=== PATIENT | male | born 1950 | race Caucasian/White ===

== ENCOUNTER 2019-01-28 11:31 | Emergency (ER) | payer MEDICARE, MEDICAID ==
[~2019-01-28] VITALS: Ht 172.7 cm; Wt 73.9 kg
[2019-01-28] MEDS ORDERED: SODIUM CHLORIDE 0.9% 1,000 ML IVB ONE (11:48)
[2019-01-28] MEDS ORDERED: LIDOCAINE 2% JELLY 11ml (GLYDO) UR ONE (12:00)
[2019-01-28 12:07] LABS: Basophils # (auto) 0.1 uL; Eosinophils # (auto) 0.2 uL; Hematocrit 38.5 % (41.0-53.0); Hemoglobin 12.7 g/dL (13.5-17.5); Lymphocytes # (auto) 0.9 uL; Lymphocytes % (auto) 29.9 % (10.0-50.0); Mean Corpuscular Hemoglobin 30.9 pg (28.0-32.0); Mean Corpuscular Hgb Conc. 33.1 g/dL (32.0-36.0); Mean Corpuscular Volume 93.3 fL (80.0-100.0); Monocytes # (auto) 0.2 uL; Monocytes % (auto) 6.9 % (0.0-12.0); Neutrophils # (auto) 1.7 uL; Neutrophils % (auto) 56.2 % (37.0-80.0); Nucleated Red Blood Cells % 0.1 %; Platelet Count (auto) 213 10^3/uL (140-450); Red Blood Cells 4.13 10^6/uL (4.5-5.90); Red Cell Distribution Width 14.8 % (11.8-14.3)
[2019-01-28 12:30] LABS: Albumin 2.5 g/dL (3.4-5.0); Calcium 10.5 mg/dL (8.5-10.1); Magnesium 2.1 mg/dL (1.6-2.6); Potassium 4.4 mmol/L (3.5-5.1)
[2019-01-28 12:31] LABS: Urine Bacteria NONE SEEN /hpf (None Seen); Urine Blood 1+ /uL (Negative); Urine Specific Gravity 1.008 (1.001-1.035); Urine WBC 2 /hpf (0 - 3)
[2019-01-28 12:32] LABS: BUN/Creatinine Ratio 10.2; Bilirubin, Total 0.5 mg/dL (0.2-1.0)
[2019-01-28 12:38] VITALS: BP 91/68
== END 2019-01-28 14:48 | disposition home or self-care (01) ==
LOC: ER 11:31
DX: N13.9 Obstructive and reflux uropathy, unspecified (principal); N21.0 Calculus in bladder; N40.0 Benign prostatic hyperplasia without lower urinary tract symptoms; K80.20 Calculus of gallbladder without cholecystitis without obstruction; Z88.8 Allergy status to other drugs, medicaments and biological substances
CPT/HCPCS: 36415; 51702; 71045; 74176; 80053; 81001; 83735; 85025; 93005; 94761; 99284; J7030

== ENCOUNTER 2019-01-30 22:34 | Emergency (ER) | payer MEDICARE, MEDICAID ==
[~2019-01-30] VITALS: Ht 172.7 cm; Wt 67.1 kg
[2019-01-30 23:53] LABS: Urine Bacteria MOD /hpf (None Seen); Urine Blood 3+ /uL (Negative); Urine Hyaline Cast MANY /lpf (0 - 2); Urine Mucus FEW (None Seen); Urine Specific Gravity 1.032 (1.001-1.035); Urine WBC 73 /hpf (0 - 3)
[2019-01-31 01:00] VITALS: BP 93/59
== END 2019-01-31 02:57 | disposition home or self-care (01) ==
LOC: ER 22:35
DX: N40.1 Benign prostatic hyperplasia with lower urinary tract symptoms (principal); R33.8 Other retention of urine; N39.0 Urinary tract infection, site not specified; E11.9 Type 2 diabetes mellitus without complications; Z88.6 Allergy status to analgesic agent
CPT/HCPCS: 74176; 81001; 94761

== ENCOUNTER 2019-02-02 14:42 | Emergency (ER) | payer MEDICARE, MEDICAID ==
[~2019-02-02] VITALS: Ht 172.7 cm; Wt 61.2 kg
[2019-02-02 16:00] VITALS: BP 95/60
== END 2019-02-02 17:40 | disposition home or self-care (01) ==
LOC: ER 14:45
DX: Z46.89 Encounter for fitting and adjustment of other specified devices (principal); E11.9 Type 2 diabetes mellitus without complications; Z88.8 Allergy status to other drugs, medicaments and biological substances; Z86.73 Personal history of transient ischemic attack (TIA), and cerebral infarction without residual deficits

== ENCOUNTER 2021-01-21 03:38 | Emergency (ER) | payer MEDICARE, MEDICAID ==
[~2021-01-21] VITALS: Ht 172.7 cm; Wt 73.5 kg
[2021-01-21 03:48] VITALS: BP 154/84
== END 2021-01-21 05:22 | disposition left against medical advice (07) ==
LOC: ER 03:38
DX: M54.6 Pain in thoracic spine (principal); Z53.21 Procedure and treatment not carried out due to patient leaving prior to being seen by health care provider

== ENCOUNTER 2021-02-03 21:51 | Emergency (ER) | payer MEDICARE, MEDICAID ==
[~2021-02-03] VITALS: Ht 172.7 cm; Wt 72.6 kg
[2021-02-03 21:57] VITALS: BP 173/91
[2021-02-03 23:23] LABS: Basophils # (auto) 0.1 10 ^3/uL (0-0.2); Basophils % (auto) 0.7 % (0.0-2.0); Eosinophils # (auto) 0.4 10 ^3/uL (0-0.8); Eosinophils % (auto) 6.1 % (0.0-7.0); Hematocrit 47.4 % (41.0-53.0); Hemoglobin 16.1 g/dL (13.5-17.5); Lymphocytes # (auto) 1.1 10 ^3/uL (0.4-5.4); Lymphocytes % (auto) 16.7 % (10.0-50.0); Mean Corpuscular Hemoglobin 31.2 pg (28.0-32.0); Mean Corpuscular Hgb Conc. 33.9 g/dL (32.0-36.0); Monocytes # (auto) 0.4 10 ^3/uL (0-1.3); Monocytes % (auto) 5.6 % (0.0-12.0); Neutrophils # (auto) 4.9 10 ^3/uL (1.6-8.6); Neutrophils % (auto) 70.9 % (37.0-80.0); Red Blood Cells 5.15 10^6/uL (4.5-5.90); Red Cell Distribution Width 13.1 % (11.8-14.3); White Blood Cell 6.9 10^3/uL (4.4-10.8)
[2021-02-03 23:43] LABS: Albumin 3.7 g/dL (3.4-5.0); BUN/Creatinine Ratio 12.6; Calcium 7.9 mg/dL (8.5-10.1); Potassium 3.7 mmol/L (3.5-5.1)
[2021-02-03 23:48] LABS: Bilirubin, Total 0.4 mg/dL (0.2-1.0); Total Protein 8.1 g/dL (6.4-8.2)
[2021-02-04 04:23] LABS: Urine Bacteria NONE SEEN /hpf (None Seen); Urine Blood Negative /uL (Negative); Urine Mucus FEW (None Seen); Urine Specific Gravity 1.022 (1.001-1.035); Urine WBC 1 /hpf (0 - 3)
== END 2021-02-04 01:04 | disposition left against medical advice (07) ==
LOC: ER 21:51
DX: R10.9 Unspecified abdominal pain (principal); R11.2 Nausea with vomiting, unspecified; Z53.21 Procedure and treatment not carried out due to patient leaving prior to being seen by health care provider
CPT/HCPCS: 36415; 80053; 81001; 83880; 84484; 85025; 93005

== ENCOUNTER 2021-11-10 02:25 | Emergency (ER) | payer MEDICARE, MEDICAID ==
[~2021-11-10] VITALS: Ht 172.7 cm; Wt 78.1 kg
[2021-11-10 05:02] LABS: Urine Bacteria FEW /hpf (None Seen); Urine Blood 3+ /uL (Negative); Urine Specific Gravity 1.006 (1.001-1.035); Urine WBC <1 /hpf (0 - 3)
[2021-11-10 08:00] VITALS: BP 110/78
== END 2021-11-10 08:58 | disposition home or self-care (01) ==
LOC: ER 02:25
DX: R33.9 Retention of urine, unspecified (principal); E11.9 Type 2 diabetes mellitus without complications; Z86.73 Personal history of transient ischemic attack (TIA), and cerebral infarction without residual deficits; Z88.8 Allergy status to other drugs, medicaments and biological substances
CPT/HCPCS: 51702; 81001

== ENCOUNTER 2021-11-22 09:42 | Emergency (ER) | payer MEDICARE, MEDICAID ==
[~2021-11-22] VITALS: Ht 172.7 cm; Wt 75.3 kg
[2021-11-22 10:13] VITALS: BP 118/77
== END 2021-11-22 10:30 | disposition home or self-care (01) ==
LOC: ER 09:48
DX: E11.9 Type 2 diabetes mellitus without complications (principal); Z46.6 Encounter for fitting and adjustment of urinary device; Z86.73 Personal history of transient ischemic attack (TIA), and cerebral infarction without residual deficits; Z88.6 Allergy status to analgesic agent

== ENCOUNTER → 2022-01-17 | Outpatient (CLI) | payer MEDICARE, MEDICAID ==
[~2022-01-17] VITALS: Ht 172.7 cm; Wt 69.4 kg
[~2022-01-17] MED LIST: CALC667C5 PO; CHOL20007 OR
[2022-01-17 13:08] LABS: Basophils # (auto) 0 10 ^3/uL (0-0.2); Basophils % (auto) 0.9 % (0.0-2.0); Eosinophils # (auto) 0.4 10 ^3/uL (0-0.8); Eosinophils % (auto) 7.4 % (0.0-7.0); Hematocrit 44.7 % (41.0-53.0); Hemoglobin 14.6 g/dL (13.5-17.5); Lymphocytes % (auto) 18.9 % (10.0-50.0); Mean Corpuscular Hemoglobin 30.3 pg (28.0-32.0); Mean Corpuscular Hgb Conc. 32.6 g/dL (32.0-36.0); Mean Corpuscular Volume 92.8 fL (80.0-100.0); Monocytes # (auto) 0.3 10 ^3/uL (0-1.3); Monocytes % (auto) 6.1 % (0.0-12.0); Neutrophils # (auto) 3.6 10 ^3/uL (1.6-8.6); Neutrophils % (auto) 66.7 % (37.0-80.0); Red Blood Cells 4.82 10^6/uL (4.5-5.90); White Blood Cell 5.3 10^3/uL (4.4-10.8)
[2022-01-17 13:17] LABS: INR 0.92 (0.9-1.15); Partial Thromboplastin Time 26.7 sec (24.6-33.4)
[2022-01-17 13:31] LABS: Urine Bacteria NONE SEEN /hpf (None Seen); Urine Blood Negative /uL (Negative); Urine Specific Gravity 1.023 (1.001-1.035); Urine WBC 613 /hpf (0 - 3)
[2022-01-17 14:01] LABS: Potassium 4.6 mmol/L (3.5-5.1)
[2022-01-17 14:08] LABS: Albumin 3.2 g/dL (3.4-5.0); BUN/Creatinine Ratio 12.1; Bilirubin, Total 1.1 mg/dL (0.2-1.0); Calcium 7.8 mg/dL (8.5-10.1); Total Protein 6.7 g/dL (6.4-8.2)
== END | disposition home or self-care (01) ==
LOC: SUR 12:08 → EDSTATUS 01-18 12:15
PROVIDERS: ATTEND Urology
DX: Z01.812 Encounter for preprocedural laboratory examination (principal); U07.1 COVID-19; M79.89 Other specified soft tissue disorders; N39.0 Urinary tract infection, site not specified; D53.8 Other specified nutritional anemias
CPT/HCPCS: 36415; 80053; 81001; 85025; 85610; 85730; 87086; U0003

== ENCOUNTER 2022-02-12 06:27 | Observation (INO) | payer MEDICARE, MEDICAID ==
[2022-02-08 09:21] LABS: Basophils # (auto) 0 10 ^3/uL (0-0.2); Basophils % (auto) 0.7 % (0.0-2.0); Eosinophils # (auto) 0.5 10 ^3/uL (0-0.8); Eosinophils % (auto) 8.8 % (0.0-7.0); Hematocrit 45.2 % (41.0-53.0); Hemoglobin 15.5 g/dL (13.5-17.5); Lymphocytes # (auto) 1.1 10 ^3/uL (0.4-5.4); Lymphocytes % (auto) 21.7 % (10.0-50.0); Mean Corpuscular Hemoglobin 31.6 pg (28.0-32.0); Mean Corpuscular Hgb Conc. 34.3 g/dL (32.0-36.0); Mean Corpuscular Volume 92.2 fL (80.0-100.0); Monocytes # (auto) 0.4 10 ^3/uL (0-1.3); Neutrophils # (auto) 3.3 10 ^3/uL (1.6-8.6); Neutrophils % (auto) 61.8 % (37.0-80.0); White Blood Cell 5.3 10^3/uL (4.4-10.8)
[2022-02-08 09:29] LABS: INR 0.92 (0.9-1.15); Partial Thromboplastin Time 26.8 sec (24.6-33.4)
[2022-02-08 09:57] LABS: Albumin 3.5 g/dL (3.4-5.0); Calcium 7.9 mg/dL (8.5-10.1); Potassium 4.6 mmol/L (3.5-5.1)
[2022-02-08 10:00] LABS: BUN/Creatinine Ratio 13.2; Bilirubin, Total 0.6 mg/dL (0.2-1.0); Total Protein 6.9 g/dL (6.4-8.2)
[2022-02-08 13:01] LABS: Urine Bacteria NONE SEEN /hpf (None Seen); Urine Mucus FEW (None Seen); Urine WBC 181 /hpf (0 - 3)
[2022-02-08 13:09] LABS: Urine Blood TRACE /uL (Negative)
[~2022-02-12] VITALS: Ht 172.7 cm; Wt 69.4 kg
[2022-02-12] MEDS ORDERED: SUCCINYLCHOLINE CHLORIDE 20 MG/ML 10ML VIAL IV ONE (07:01)
[2022-02-12] MEDS ORDERED: ROCURONIUM 10MG/ML 10ML VIAL IV ONE (07:01)
[2022-02-12] MEDS ORDERED: CIPROFLOXACIN 400MG/200ML 200 ML IV ONE (07:26)
[2022-02-12] MEDS ORDERED: SODIUM CHLORIDE LOCK 10 ML ONE (07:27)
[2022-02-12] MEDS ORDERED: MIDAZOLAM HCL 2MG/2ML 2ml VIAL (1mg/ml) ONE (07:27)
[2022-02-12] MEDS ORDERED: fentaNYL CITRATE 100 MCG/2 ML VL ONE (07:27)
[2022-02-12] MEDS ORDERED: DexAMETHasone SOD PHOS 10MG/1ML VIAL INJ ONE (07:27)
[2022-02-12] MEDS ORDERED: PROPOFOL 10 MG/ML 20 ML IV ONE (07:27)
[2022-02-12] MEDS ORDERED: HYDROmorphone HCL 2 MG/ML VL/or syr IV PRN ×2 (07:30)
[2022-02-12] MEDS ORDERED: METOCLOPRAMIDE HCL 5MG/ml INJ 2ml VIAL IV PRN (07:30)
[2022-02-12] MEDS ORDERED: MORPHINE SULFATE 4 MG/ML SYR/VIAL IV PRN (07:30)
[2022-02-12] MEDS ORDERED: ONDANSETRON HCL 4 MG/2 ML VIAL ONE (11:40)
[2022-02-12] MEDS ORDERED: MORPHINE SULFATE INJ 2 MG/ml SYRG IV PRN (12:30)
[2022-02-12] MEDS ORDERED: NITROGLYCERIN 0.4 MG SL TAB SL PRN (12:30)
[2022-02-12 16:20] VITALS: BP 126/77
[2022-02-12 17:23] VITALS: BP 126/77
[2022-02-12 20:00] VITALS: BP 117/70
[2022-02-12 22:00] VITALS: BP 117/70
[2022-02-13 05:00] VITALS: BP 111/60
[2022-02-13 08:15] VITALS: BP 113/69
[2022-02-13 12:10] VITALS: BP 106/64
[2022-02-13 16:10] VITALS: BP 113/70
[2022-02-13 16:47] VITALS: BP 113/70
== END 2022-02-13 18:33 | disposition home or self-care (01) ==
LOC: SUR 06:27 → OVERFLOW 12:24 → WEST WING 16:56
PROVIDERS: ADMIT Urology; ATTEND Urology
DX: N40.0 Benign prostatic hyperplasia without lower urinary tract symptoms (principal); Z20.822 Contact with and (suspected) exposure to COVID-19; N21.0 Calculus in bladder; N47.1 Phimosis; Z79.899 Other long term (current) drug therapy
CPT/HCPCS: 36415; 51050; 80053; 81001; 85025; 85610; 85730; 87086; 88300; C9740; G0378; J0330; J0744; J1100; J2250; J2405; J2704; J3010; L8699; U0003

== ENCOUNTER 2023-10-01 21:46 | Emergency (ER) | payer MEDICARE, MEDICAID ==
[~2023-10-01] VITALS: Ht 172.7 cm; Wt 69.5 kg
[2023-10-01 22:00] VITALS: BP 115/81; PULSE 78; RESP 18; O2SAT 100
[2023-10-02] MEDS ORDERED: CALA1SUS2 EX (09:23)
[2023-10-02] MEDS ORDERED: CETI5TAB6 PO (09:23)
[2023-10-02] MEDS ORDERED: METH4PAK PO (09:23)
[2023-10-02] MEDS ORDERED: TRIO1TP EX (09:23)
== END 2023-10-01 23:46 | disposition left against medical advice (07) ==
LOC: ER 21:46
DX: R21 Rash and other nonspecific skin eruption (principal); Z53.21 Procedure and treatment not carried out due to patient leaving prior to being seen by health care provider

== ENCOUNTER 2023-10-02 05:25 | Emergency (ER) | payer MEDICARE, MEDICAID ==
[~2023-10-02] VITALS: Ht 172.7 cm; Wt 71.8 kg
[2023-10-02 07:39] VITALS: TEMP 98.8
[2023-10-02] MEDS: FAMOTIDINE (10MG/ML) 2ML VL IV ONE (08:37)
[2023-10-02] MEDS: methylPREDNISolone SOD SUCC 125 MG/2 ML VL IV ONE (08:37)
[2023-10-02] MEDS: diphenhdrAMINE HCL 50 MG/1 ML VL IV ONE (08:37)
[2023-10-02] MEDS ORDERED: METH4PAK PO (09:23)
[2023-10-02] MEDS ORDERED: CETI5TAB6 PO (09:23)
[2023-10-02] MEDS ORDERED: CALA1SUS2 EX (09:23)
[2023-10-02] MEDS ORDERED: TRIO1TP EX (09:23)
[2023-10-02 09:44] VITALS: BP 103/73; PULSE 83; RESP 18; O2SAT 95
== END 2023-10-02 09:50 | disposition home or self-care (01) ==
LOC: ER 05:27
DX: T78.40XA Allergy, unspecified, initial encounter (principal); E11.9 Type 2 diabetes mellitus without complications; Z86.73 Personal history of transient ischemic attack (TIA), and cerebral infarction without residual deficits; Z88.6 Allergy status to analgesic agent; X58.XXXA Exposure to other specified factors, initial encounter
CPT/HCPCS: 96374; 96375; 99284; J1200; J2919; J3490

== ENCOUNTER 2023-10-05 21:53 | Emergency (ER) | payer MEDICARE, MEDICAID ==
[~2023-10-05] VITALS: Ht 172.7 cm; Wt 158.0 kg
[~2023-10-05 21:53] MED LIST changes: +CALA1SUS2 EX; +CETI5TAB6 PO; +METH4PAK PO; +TRIO1TP EX
[2023-10-06 02:14] VITALS: BP 113/54; PULSE 74; RESP 20; TEMP 97.4; O2SAT 96
== END 2023-10-06 05:58 | disposition left against medical advice (07) ==
LOC: ER 21:53
DX: R33.9 Retention of urine, unspecified (principal); Z53.21 Procedure and treatment not carried out due to patient leaving prior to being seen by health care provider
CPT/HCPCS: 74018

== ENCOUNTER 2023-10-06 14:21 | Inpatient (IN) | payer MEDICARE, MEDICAID ==
[~2023-10-06] VITALS: Ht 167.6 cm; Wt 61.5 kg
[2023-10-06 15:15] LABS: Basophils # (auto) 0 10 ^3/uL (0-0.2); Basophils % (auto) 0.3 % (0.0-2.0); Eosinophils # (auto) 0.2 10 ^3/uL (0-0.8); Eosinophils % (auto) 2.3 % (0.0-7.0); Hematocrit 43.9 % (41.0-53.0); Hemoglobin 15.1 g/dL (13.5-17.5); Lymphocytes # (auto) 0.9 10 ^3/uL (0.4-5.4); Lymphocytes % (auto) 11.6 % (10.0-50.0); Mean Corpuscular Hemoglobin 31.2 pg (28.0-32.0); Mean Corpuscular Hgb Conc. 34.3 g/dL (32.0-36.0); Mean Corpuscular Volume 90.9 fL (80.0-100.0); Monocytes # (auto) 0.4 10 ^3/uL (0-1.3); Monocytes % (auto) 5.8 % (0.0-12.0); Neutrophils # (auto) 6.2 10 ^3/uL (1.6-8.6); Red Blood Cells 4.83 10^6/uL (4.5-5.90); Red Cell Distribution Width 12.8 % (11.8-14.3); White Blood Cell 7.7 10^3/uL (4.4-10.8)
[2023-10-06 15:25] LABS: Chloride 110 mmol/L (98-107); Potassium 3.3 mmol/L (3.5-5.1); Sodium 141 mmol/L (136-145)
[2023-10-06 15:26] LABS: Anion Gap 7 (5-15); Calcium 8.6 mg/dL (8.7-10.4); Carbon Dioxide 24 mmol/L (20-30)
[2023-10-06 15:31] LABS: BUN/Creatinine Ratio 11.4 (10.0-20.0); Blood Urea Nitrogen 19 mg/dL (9-23); Glucose 143 mg/dL (74-106)
[2023-10-06] MEDS: POTASSIUM EFFERVESENT TAB 25 MEQ PO ONE (16:39)
[2023-10-07] MEDS ORDERED: IBUPROFEN 600 MG TAB PO PRN (00:30)
[2023-10-07] MEDS ORDERED: ONDANSETRON HCL 4 MG/2 ML VIAL IV PRN (00:30)
[2023-10-07] MEDS ORDERED: DOCUSATE SOD 100 MG CAP PO PRN (00:30)
[2023-10-07] MEDS ORDERED: MORPHINE SULFATE INJ 2 MG/ml SYRG IV PRN ×2 (00:30)
[2023-10-07] MEDS ORDERED: NITROGLYCERIN 0.4 MG SL TAB SL PRN (00:30)
[2023-10-07 05:50] LABS: Basophils # (auto) 0 10 ^3/uL (0-0.2); Basophils % (auto) 0.3 % (0.0-2.0); Eosinophils # (auto) 0.5 10 ^3/uL (0-0.8); Eosinophils % (auto) 6.1 % (0.0-7.0); Hematocrit 44.4 % (41.0-53.0); Hemoglobin 15.2 g/dL (13.5-17.5); Lymphocytes # (auto) 1.4 10 ^3/uL (0.4-5.4); Lymphocytes % (auto) 17.8 % (10.0-50.0); Mean Corpuscular Hemoglobin 31.6 pg (28.0-32.0); Mean Corpuscular Hgb Conc. 34.2 g/dL (32.0-36.0); Mean Corpuscular Volume 92.5 fL (80.0-100.0); Monocytes # (auto) 0.5 10 ^3/uL (0-1.3); Monocytes % (auto) 6.7 % (0.0-12.0); Neutrophils # (auto) 5.3 10 ^3/uL (1.6-8.6); Neutrophils % (auto) 69.1 % (37.0-80.0); Red Cell Distribution Width 12.9 % (11.8-14.3); White Blood Cell 7.7 10^3/uL (4.4-10.8)
[2023-10-07] MEDS: SODIUM CHLOR 0.9% PF (SALINE LOCK) 10ML VIAL/SYR IV SCH (06:00)
[2023-10-07 06:07] LABS: Alanine Aminotransferase 14 U/L (7-40); Albumin 4.2 g/dL (3.2-4.8); Alkaline Phosphatase 101 U/L (46-116); Anion Gap 7 (5-15); BUN/Creatinine Ratio 11.2 (10.0-20.0); Blood Urea Nitrogen 18 mg/dL (9-23); Calcium 8.8 mg/dL (8.5-10.1); Carbon Dioxide 26 mmol/L (20-30); Chloride 107 mmol/L (98-107); Glucose 104 mg/dL (74-106); Potassium 4.1 mmol/L (3.5-5.1); Sodium 140 mmol/L (136-145)
[2023-10-07 06:08] LABS: Aspartate Aminotransferase < 8 U/L (13-40); Bilirubin, Total 0.7 mg/dL (0.2-1.0); Total Protein 6.7 g/dL (5.7-8.2)
[2023-10-07 08:23] VITALS: PULSE 74; RESP 15; O2SAT 96
[2023-10-07 08:23] LABS: Urine Amorphous Crystal FEW /hpf (None Seen); Urine Bacteria FEW /hpf (None Seen); Urine Blood 2+ /uL (Negative); Urine Clarity Clear (Clear); Urine Color Yellow (Yellow); Urine Hyaline Cast FEW /lpf (0 - 2); Urine Mucus FEW (None Seen); Urine Protein, UAD 1+ (Negative); Urine Specific Gravity 1.026 (1.001-1.035); Urine Urobilinogen Normal (Negative); Urine WBC 11 /hpf (0 - 3); Urine pH 5.5 (5.0-9.0)
[2023-10-07 09:53] VITALS: BP 109/71; PULSE 61; TEMP 97.6; O2SAT 98
[2023-10-07 13:00] VITALS: BP 120/71; PULSE 44; RESP 16; TEMP 97.8; O2SAT 100
[2023-10-07 17:00] VITALS: BP 108/68; PULSE 61; RESP 17; TEMP 97.9; O2SAT 97
[2023-10-07 20:00] VITALS: RESP 16; O2SAT 95
[2023-10-07 21:00] VITALS: BP 103/69; PULSE 75; RESP 17; TEMP 98.3; O2SAT 95
[2023-10-07] MEDS: DOCUSATE SOD 100 MG CAP PO SCH (21:38)
[2023-10-08 01:00] VITALS: BP 98/60; PULSE 63; RESP 16; TEMP 98.3; O2SAT 97
[2023-10-08 05:00] VITALS: BP 90/56; PULSE 61; RESP 16; TEMP 98.4; O2SAT 100
[2023-10-08 07:07] LABS: Basophils # (auto) 0 10 ^3/uL (0-0.2); Basophils % (auto) 0.2 % (0.0-2.0); Eosinophils # (auto) 0.4 10 ^3/uL (0-0.8); Eosinophils % (auto) 5.7 % (0.0-7.0); Hematocrit 40.7 % (41.0-53.0); Hemoglobin 13.9 g/dL (13.5-17.5); Mean Corpuscular Hemoglobin 31.3 pg (28.0-32.0); Mean Corpuscular Hgb Conc. 34.3 g/dL (32.0-36.0); Mean Corpuscular Volume 91.2 fL (80.0-100.0); Monocytes # (auto) 0.5 10 ^3/uL (0-1.3); Monocytes % (auto) 6.4 % (0.0-12.0); Neutrophils # (auto) 5.2 10 ^3/uL (1.6-8.6); Neutrophils % (auto) 73.7 % (37.0-80.0); Red Blood Cells 4.46 10^6/uL (4.5-5.90); Red Cell Distribution Width 12.5 % (11.8-14.3)
[2023-10-08 07:35] LABS: Alanine Aminotransferase 12 U/L (7-40); Albumin 3.4 g/dL (3.2-4.8); Alkaline Phosphatase 83 U/L (46-116); Anion Gap 5 (5-15); Aspartate Aminotransferase < 8 U/L (13-40); BUN/Creatinine Ratio 11.6 (10.0-20.0); Bilirubin, Total 0.8 mg/dL (0.2-1.0); Blood Urea Nitrogen 18 mg/dL (9-23); Calcium 8.4 mg/dL (8.5-10.1); Carbon Dioxide 25 mmol/L (20-30); Chloride 110 mmol/L (98-107); Glucose 97 mg/dL (74-106); Potassium 3.8 mmol/L (3.5-5.1); Sodium 140 mmol/L (136-145); Total Protein 5.5 g/dL (5.7-8.2)
[2023-10-08 08:00] VITALS: BP 101/63; PULSE 58; RESP 16; TEMP 98; O2SAT 95; O2SAT 98
[2023-10-08 12:00] VITALS: BP 103/57; PULSE 65; RESP 16; TEMP 98.5; O2SAT 95
[2023-10-08] MEDS ORDERED: CIP500T PO (15:40)
[2023-10-08 16:00] VITALS: BP 96/61; PULSE 66; RESP 16; TEMP 98.5; O2SAT 94
[2023-10-08] MEDS ORDERED: CIPROFLOXACIN HCL 500 MG TAB PO SCH (22:00)
[2023-10-09 08:06] LABS: PSA Free 3.61 ng/mL
== END 2023-10-08 19:40 | disposition home or self-care (01) | DRG 394 ==
LOC: ER 14:21 → OVERFLOW 10-07 00:28 → CENTRAL 10-07 09:00
PROVIDERS: ADMIT Nurse Practitioner Family; ATTEND Nurse Practitioner Acute Care
DX: K64.9 Unspecified hemorrhoids (principal); K62.5 Hemorrhage of anus and rectum; N39.0 Urinary tract infection, site not specified; K59.00 Constipation, unspecified; E87.6 Hypokalemia; N40.1 Benign prostatic hyperplasia with lower urinary tract symptoms; R33.8 Other retention of urine; E11.9 Type 2 diabetes mellitus without complications; Z86.73 Personal history of transient ischemic attack (TIA), and cerebral infarction without residual deficits; Z88.6 Allergy status to analgesic agent; Z79.899 Other long term (current) drug therapy; Z79.4 Long term (current) use of insulin
CPT/HCPCS: 36415; 74018; 80048; 80053; 81001; 83036; 84154; 85025; 87081; G0378

== ENCOUNTER 2023-11-04 11:22 | Emergency (ER) | payer MEDICARE, MEDICAID ==
[~2023-11-04] VITALS: Ht 172.7 cm; Wt 73.7 kg
[~2023-11-04 11:22] MED LIST changes: +CIP500T PO
[2023-11-04 12:26] LABS: Urine Bacteria None Seen /hpf (None Seen)
[2023-11-04 12:55] LABS: Urine Blood Negative /uL (Negative); Urine Clarity Clear (Clear); Urine Color Light-Yellow (Yellow); Urine Protein, UAD Negative (Negative); Urine Specific Gravity 1.012 (1.001-1.035); Urine Urobilinogen Normal (Negative); Urine WBC 1 /hpf (0 - 3)
[2023-11-04 12:59] VITALS: TEMP 97.9
[2023-11-04] MEDS ORDERED: TAMS-35 PO (13:20)
[2023-11-04 13:55] VITALS: PULSE 65; RESP 16; O2SAT 98
[2023-11-04 14:00] VITALS: BP 114/75; PULSE 63; RESP 16; O2SAT 95
== END 2023-11-04 14:19 | disposition home or self-care (01) ==
LOC: ER 11:22
DX: R33.9 Retention of urine, unspecified (principal); E11.9 Type 2 diabetes mellitus without complications; Z86.73 Personal history of transient ischemic attack (TIA), and cerebral infarction without residual deficits; Z46.6 Encounter for fitting and adjustment of urinary device; Z88.6 Allergy status to analgesic agent
CPT/HCPCS: 51702; 81001

== ENCOUNTER 2024-07-31 10:21 | Inpatient (IN) | payer MEDICARE, MEDICAID ==
[~2024-07-31] VITALS: Ht 170.2 cm; Wt 66.9 kg
[~2024-07-31 10:21] MED LIST changes: +TAMS-35 PO
[2024-07-31 12:01] LABS: Basophils # (auto) 0 10 ^3/uL (0-0.2); Basophils % (auto) 0.2 % (0.0-2.0); Eosinophils # (auto) 0.1 10 ^3/uL (0-0.8); Eosinophils % (auto) 0.7 % (0.0-7.0); Hematocrit 38.9 % (41.0-53.0); Hemoglobin 13.1 g/dL (13.5-17.5); Lymphocytes # (auto) 0.4 10 ^3/uL (0.4-5.4); Lymphocytes % (auto) 4.6 % (10.0-50.0); Mean Corpuscular Hgb Conc. 33.6 g/dL (32.0-36.0); Mean Corpuscular Volume 89.3 fL (80.0-100.0); Monocytes # (auto) 0.3 10 ^3/uL (0-1.3); Monocytes % (auto) 3.8 % (0.0-12.0); Neutrophils # (auto) 7.3 10 ^3/uL (1.6-8.6); Neutrophils % (auto) 90.7 % (37.0-80.0); Platelet Count (auto) 197 10^3/uL (140-450); Red Blood Cells 4.36 10^6/uL (4.5-5.90); Red Cell Distribution Width 13.6 % (11.8-14.3); White Blood Cell 8.1 10^3/uL (4.4-10.8)
[2024-07-31 12:16] LABS: Alanine Aminotransferase 13 U/L (7-40); Alkaline Phosphatase 105 U/L (46-116); Anion Gap 10 (5-15); Aspartate Aminotransferase 25 U/L (13-40); BUN/Creatinine Ratio 9.8 (10.0-20.0); Blood Urea Nitrogen 23 mg/dL (9-23); Calcium 8.8 mg/dL (8.7-10.4); Carbon Dioxide 23 mmol/L (20-31); Chloride 110 mmol/L (98-107); Glucose 124 mg/dL (74-106); Potassium 3.8 mmol/L (3.5-5.1); Sodium 143 mmol/L (136-145); Total Protein 6.8 g/dL (5.7-8.2)
[2024-07-31 12:17] LABS: Bilirubin, Total 0.3 mg/dL (0.2-1.0)
--- NOTE | 2024-07-31 13:38 | ED.PDOC ---
General HPI Comments 74 y/o M is BIBA for c/o decrease urine output s/p Otoole catheter placement on 07/27/24, today. Patient is a poor historian and is confused on reason behind ED visit, today, upon time of initial encounter and assessment. Per EMS report, family called, due to patient producing less urine output than usual from his Otoole catheter in addition to the his urine being "cloudy" in appearance. Patient has no reported pain or blood in his urine. En route, patient was given 500ml normal saline bolus. Vitals: temperature of 98.1F, pulse rate of 74, respiratory rate of 14, blood pressure of 115/74, SpO2 of 97%RA. Past medical history: urinary retention, CVA, BPH, UTI, DM Past surgical history: Otoole catheter placement HPI: Poor Historian. Although patient denies any symptoms that does not know why he is in the hospital, palpation of his abdomen reveals a distended lower abdomen and tenderness to palpation in the suprapubic area. I suspect that his bladder is full although he has a Otoole catheter in place with normal color urine. We will irrigate the Otoole catheter. Patient's creatinine is elevated today compared to the past. He is rightly in acute renal insufficiency due to obstruction. Past Medical History: Past Surgical History: REVIEW OF SYSTEMS: CONSTITUTIONAL: Denies acute: fever, diaphoresis, chills, generalized weakness. HEAD: Denies acute: headache, photophobia Eyes: Denies acute: Double vision, vision loss, eye pain, eye discharge. EARS: Denies acute: tinnitus, hearing loss, ear discharge, ear pain, THROAT: Denies acute: sore throat, swelling, difficulty swallowing , pain with swallowing, change in voice. NECK: Denies acute: neck pain, neck swelling, stiff neck. HEART: Denies acute : chest pain, palpitations, LUNGS: Denies acute: SOB, wheezing, cough, hemoptysis ABDOMEN: Denies acute: abdominal pain, Nausea, Vomiting, diarrhea, melena , hematemesis, hematochezia SKIN: Denies acute: rash, redness, lesions, itchiness. EXTREMITIES: Denies acute: calf pain, numbness, tingling, weakness, denies pain in extremity. Denies acute: Low back pain. Neuro: Denies acute: focal neurological deficit, motor or sensory focal neurological deficit, tremors, seizure like activity, confusion, dizziness, change in mental status, loss of bowel or bladder function, cauda equina like symptoms. : Denies acute: dysuria, hematuria, flank pain, increase in urinary frequency. PSYCH: Denies acute: hallucination, suicidal ideation, homicidal ideation. PHYSICAL EXAM: General: ----[id number]----acute distress, awake and alert. Head: normocephalic, atraumatic. Neck: supple, trachea is midline, no swelling. Throat: Normal phonation. Eyes:, no erythema, no purulent discharge, no proptosis, no icterus. Heart: regular rate, regular rhythm, no significant murmur appreciated. Lungs: no apparent respiratory distress, Able to speak in full sentences. No wheezing, no rhonchi, no crackles. No stridors Clear to auscultation bilaterally. Abdomen: Suprapubic tender to palpation, mildly distended, soft, no guarding, no rebound, + bowel sounds. Neuro: Awake, Alert, oriented to name, self, follows commands GCS=15. Speech is normal. Skin: no petechia, no purpura, no cyanosis, non-pale, not jaundice. Lower extremities: --trace bilateral - Pitting edema no deformity, no focal swelling, no calf TTP. Makes eye contact. Face: no apparent facial droop. 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, Medications, Allergies Allergies: Coded Allergies: Acetaminophen (Verified Allergy, Unknown, 01/28/19) Home Meds Active Scripts Tamsulosin Hcl (Flomax) 0.4 Mg Cap, 1 CAP PO DAILY, #30 CAP 11 Refills Prov:LELO GREEN MD 11/04/23 Ciprofloxacin Hydrochloride (Ciprofloxacin HCl) 500 Mg Tab, 500 MG PO BID for 4 Days, #8 TAB Prov:RENE GEORGE NP 10/08/23 Cetirizine Hcl (Cetirizine Hcl) 5 Mg Tab, 10 MG PO DAILY for 14 Days, #28 TAB 0 Refills Prov:STEFANIE ARCEO SUPERVISOR [employer]UTTLE [employer]TING 10/02/23 Calamine-Zinc Oxide (Calamine 8-8 %) 1 Kim Kim, 1 APPLIC EX QID for 7 Days, #1 BOTTLE 0 Refills Prov:STEFANIE ARCEO SUPERVISOR [employer]TING 10/02/23 Triamcinolone Acetonide (Triamcinolone Acetonide) 0.1 % Cre, 0.1 % EX BID for 5 Days, #120 GRAMS 0 Refills Prov:STEFANIE ARCEO SUPERVISOR [employer]TING 10/02/23 Methylprednisolone (Medrol Dosepak) 4 Mg Aelxandro, 4 MG PO UD, #21 TAB 0 Refills UAD Prov:STEFANIE ARCEO SUPERVISOR [employer]UTT[employer]TING 10/02/23 Reported Medications Cholecalciferol (VITAMIN D3) Unknown Strength Tab, OR, TAB 01/17/22 Calcium Acetate (PHOSLO CAPSULE) 667 Mg Cp, 667 MG PO DAILY, CAP 01/17/22 Information Source: Patient, Emergency Med Personnel Mode of Arrival: EMS Past Medical History PAST MEDICAL HISTORY: CVA, DM Family History Family History: Reviewed,noncontributory to illness Social History Smoker: Non-Smoker Alcohol: Denies ETOH Use Drugs: Denies Drug Use Lives In: Home Was a procedure done? Was a procedure done?: No Differential Diagnosis Kidney stone (Female): N/A Urinary Problem (Male): Bladder Outlet, Bladder Obstruction, Epididymitis, Prostatitis, Plelonephritis, Post op Complications, Renal Failure, Urethritis, Urinary Retention, Urolithiasis, UTI X-Ray, Labs, Meds, VS Vital Signs Date Time Temp Pulse Resp B/P (MAP) Pulse Ox O2 Delivery O2 Flow Rate FiO2 07/31/24 14:00 79 18 135/86 (102) 97 07/31/24 10:45 98.1 74 14 115/74 (88) 97 98.1 Lab Test 07/31/24 11:46 Range/Units White Blood Count 8.1 4.4-10.8 10^3/uL Red Blood Count 4.36 L 4.5-5.90 10^6/uL Hemoglobin 13.1 L 13.5-17.5 g/dL Hematocrit 38.9 L 41.0-53.0 % Mean Corpuscular Volume 89.3 80.0-100.0 fL Mean Corpuscular Hemoglobin 30.0 28.0-32.0 pg Mean Corpuscular Hemoglobin Concent 33.6 32.0-36.0 g/dL Red Cell Distribution Width 13.6 11.8-14.3 % Platelet Count 197 140-450 10^3/uL Mean Platelet Volume 7.2 6.9-10.8 fL Neutrophils (%) (Auto) 90.7 H 37.0-80.0 % Lymphocytes (%) (Auto) 4.6 L 10.0-50.0 % Monocytes (%) (Auto) 3.8 0.0-12.0 % Eosinophils (%) (Auto) 0.7 0.0-7.0 % Basophils (%) (Auto) 0.2 0.0-2.0 % Neutrophils # (Auto) 7.3 1.6-8.6 10 ^3/uL Lymphocytes # (Auto) 0.4 0.4-5.4 10 ^3/uL Monocytes # (Auto) 0.3 0-1.3 10 ^3/uL Eosinophils # (Auto) 0.1 0-0.8 10 ^3/uL Basophils # (Auto) 0 0-0.2 10 ^3/uL Nucleated Red Blood Cells 0.0 % Sodium Level 143 136-145 mmol/L Potassium Level 3.8 3.5-5.1 mmol/L Chloride Level 110 H 98-107 mmol/L Carbon Dioxide Level 23 20-31 mmol/L Anion Gap 10 5-15 Blood Urea Nitrogen 23 9-23 mg/dL Creatinine 2.35 H 0.700-1.30 mg/dL Glomerular Filtration Rate Calc 29 >90 mL/min BUN/Creatinine Ratio 9.8 L 10.0-20.0 Serum Glucose 124 H 74-106 mg/dL Calcium Level 8.8 8.7-10.4 mg/dL Total Bilirubin 0.3 0.2-1.0 mg/dL Aspartate Amino Transferase (AST) 25 13-40 U/L Alanine Aminotransferase (ALT) 13 7-40 U/L Alkaline Phosphatase 105 46-116 U/L Total Protein 6.8 5.7-8.2 g/dL Albumin 4.0 3.2-4.8 g/dL [facility] [id number] [facility] [address] Ph: [phone] DIAGNOSTIC IMAGING Diagnostic Imaging Report : [id number] Signed PATIENT: DENNIS BENZ EDWARDACCT: [id number] UNIT: [id number] : 1950 LOC: ER ROOM / BED: / AGE / SEX: 74 / M ADM STATUS: REG ER SERVICE 1309 ORDERING PHYSICIAN: RHEA NOBLE DO PROCEDURE(s): ABPL - CT AB PEL WO CON-NO ORAL OR IV REASON: Urinary symptoms, possible outlet obstruction ORDER NUMBER(s): [id number], ACCESSION NUMBER(s): [id number] CLINICAL INFORMATION: 74 years old, Male; Urinary symptoms, possible outlet obstruction. TECHNIQUE: Axial CT images of the abdomen and pelvis were obtained without IV contrast. Coronal and sagittal reformatted images were obtained, reviewed, and stored. Evaluation of the parenchymal organs is limited without IV contrast. Evaluation of the bowel and mesentery is limited without oral contrast. All CT scans at this medical facility are performed using dose modulation techniques as appropriate to a performed exam including the following: Automated exposure control was utilized; adjustment of the MA and/or KV according to patient size; and use of iterative reconstruction technique. CTDIvol = 5.12 mGy DLP = 288.11 mGy-cm COMPARISON: Radiograph dated 10/05/2023. FINDINGS: Lung bases: Atelectasis in the lower lobes bilaterally. Liver: Grossly unremarkable in its noncontrast enhanced appearance. No abnormal density or focal lesion identified. Biliary: Cholecystectomy. Spleen: Unremarkable. Pancreas: Grossly unremarkable in its noncontrast enhanced appearance. Adrenal glands: Unremarkable. No mass. Kidneys and bladder: Moderate bilateral hydronephrosis and hydroureter with no obstructing calculi visualized. No renal or ureteral calculi. Bladder is markedly distended, consistent with bladder outlet obstruction in the appropriate clinical setting. Aorta/Vascular: Moderate atherosclerotic calcification. No abdominal aortic aneurysm. Retroperitoneum: No mass or lymphadenopathy. Bowel/mesentery: Nonspecific nondilated fluid-filled small bowel loops. No small bowel obstruction. Appendix is not visualized. Moderate stool in the colon. Pelvic organs: Enlarged prostate with impression on the bladder base. There is distention of the prostatic urethra, which may be seen in the setting of prior trans urethral resection of the prostate. Multiple fiducial markers are seen in the prostate. 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 Bones: No acute fracture or suspicious intraosseous lesion. IMPRESSION: 1. Severely distended bladder with moderate bilateral hydronephrosis, likely due to bladder outlet obstruction in the appropriate clinical setting. 2. Enlarged prostate with distended prostatic urethra and fiducial markers in the prostate. 3. Additional findings as detailed above. ATED BY: EDISON MOTTA DO DICTATED DATE/TIME: 07/31/241414 SIGNED BY: EDISON MOTTA DO SIGNED DATE/TIME: 07/31/241414 CC: Time of 1ST Reevaluation: 12:50 Reevaluation 1ST: Unchanged Patient Education/Counseling: Diagnosis, Treatment Family Education/Counseling: No Family Present Comments Patient presented with the above HPI.--dysfunctional Otoole catheter----workup was initiated. patient was found with the above mentioned diagnosis. the following medications were ordered: please refer to order lists of meds and tests obtained by myself Dr. Noble. Patient ED course and VS have been stabilized. Patient has been reassessed in the ED and remained in a stable condition. Pertinent incidental findings were discussed with the patient and/or family. Patient/family voices understanding and is agreeable with plan. Patient has been observed in the ED adequate length of time to insure improvement/stability. Escalation of care considered: Consideration of escalation to observation or admission Proximally 1600 cc were removed of urine after we replace the Otoole catheter. Patient has significant improvement. Patient was found with the associated acute renal insufficiency. Patient was given fluids. Patient was ADMITTED to the medicine team for further evaluation and treatment of their presentation. All the reports of any imaging studies that were ordered by myself were reviewed by myself. Departure 1 Departure Time of Disposition: 13:58 Impression: Primary Impression: Acute renal insufficiency Additional Impressions: Otoole catheter problem Urinary (tract) obstruction Bilateral hydronephrosis Disposition: ADMITTED INPATIENT Admit to: [facility] Condition: Guarded Discharged With: Self Critical Care Note Critical Care Time?: Yes (35 min-critical care time only) I personally scribed for RHEA NOBLE DO ([email or web address]) on 07/31/24 at 13:38. Electronically submitted by Ever Perez ([email or web address]). RHEA NOBLE DO Jul 31, 2024 13:38
--- NOTE | 2024-07-31 14:17 | DVH ---
CLINICAL INFORMATION: 74 years old, Male; Urinary symptoms, possible outlet obstruction. TECHNIQUE: Axial CT images of the abdomen and pelvis were obtained without IV contrast. Coronal and s agittal reformatted images were obtained, reviewed, and stored. Evaluation of the parenchymal organs is limited without IV contrast. Evaluation of the bowel and mesentery is limited without oral contras t. All CT scans at this medical facility are performed using dose modulation techniques as appropriat e to a performed exam including the following: Automated exposure control was utilized; adjustment of the MA and/or KV according to patient size; and use of iterative reconstruction technique. CTDIvol = 5.12 mGy DLP = 288.11 mGy-cm COMPARISON: Radiograph dated 10/05/2023. FINDINGS: Lung bases: Atelectasis in the lower lobes bilaterally. Liver: Grossly unremarkable in its noncontrast enhanced appearance. No abnormal density or focal lesi on identified. Biliary: Cholecystectomy. Spleen: Unremarkable. Pancreas: Grossly unremarkable in its noncontrast enhanced appearance. Adrenal glands: Unremarkable. No mass. Kidneys and bladder: Moderate bilateral hydronephrosis and hydroureter with no obstructing calculi vi sualized. No renal or ureteral calculi. Bladder is markedly distended, consistent with bladder outlet obstruction in the appropriate clinical setting. Aorta/Vascular: Moderate atherosclerotic calcification. No abdominal aortic aneurysm. Retroperitoneum: No mass or lymphadenopathy. Bowel/mesentery: Nonspecific nondilated fluid-filled small bowel loops. No small bowel obstruction. A ppendix is not visualized. Moderate stool in the colon. Pelvic organs: Enlarged prostate with impression on the bladder base. There is distention of the pros tatic urethra, which may be seen in the setting of prior trans urethral resection of the prostate. Mu ltiple fiducial markers are seen in the prostate. Abdominal wall: There is catheter tubing descending from the right chest wall and coursing into the p eritoneal cavity with the distal tip at the level of the anterior aspect of the central abdomen, like ly DEVELOPMENT EXPERT shunt catheter. Bones: No acute fracture or suspicious intraosseous lesion. IMPRESSION: 1. Severely distended bladder with moderate bilateral hydronephrosis, likely due to bladder outlet ob struction in the appropriate clinical setting. 2. Enlarged prostate with distended prostatic urethra and fiducial markers in the prostate. 3. Additional findings as detailed above.
--- NOTE | 2024-07-31 14:52 | DVHHP2 ---
History of Present Illness Reason for Visit: bladder obstruction History of Present Illness 74-year-old male brought in by ambulance with family complaining of decreased urine output via Ambriz catheter. Ambriz placed 07/27. Family reported that urine was also cloudy and he had less output in the bag throughout the day. Patient reports tenderness when palpating suprapubic. Had ambriz replaced by ER nurse and had 1600 mL output, the pubic pain gone, cloudy urine. UA still pending. Admit To Medical/Surgical. Past Medical History urinary retention, CVA, BPH, UTI, DM Past Surgical History TURP Family History Denies Smoke: No ALCOHOL: none Drugs: None Lives: with Family Review of Systems Constitutional: No: Fever, Chills, Sweats, Weakness, Malaise, Other Eyes: No: Pain, Vision change, Conjunctivae inflammation, Eyelid inflammation, Other, Redness ENT: No: Ear pain, Ear discharge, Nose pain, Nose discharge, Nose congestion, Mouth pain, Mouth swelling, Throat pain, Throat swelling, Other Respiratory: No: Cough, Dry, Shortness of breath, SOB with excertion, Wheezing, Hemoptysis, Pleuritic Pain, Sputum, Wheezing, Other Cardiovascular: No: Chest Pain, Palpitations, Orthopnea, Paroxysmal Noc. Dy spnea, Edema, Lt Headedness, Other Gastrointestinal: Other (Suprapubic pain); No: Nausea, Vomiting, Abdominal Pain, Diarrhea, Constipation, Melena, Hematochezia Genitourinary: No Dysuria, No Frequency, No Incontinence, No Hematuria; Retention (Bladder distention); No Other Musculoskeletal: No: other, neck pain, shoulder pain, arm pain, back pain, hand pain, leg pain, foot pain Skin: No: Rash, Lesions, Jaundice, Bruising, Other Neurological: No: Weakness, Numbness, Incoordination, Change in speech, Confus ion, Seizures, Other Allergies: Coded Allergies: Acetaminophen (Verified Allergy, Unknown, 01/28/19) Exam Vital Signs Vital Signs Date Time Temp Pulse Resp B/P (MAP) Pulse Ox O2 Delivery O2 Flow Rate FiO2 07/31/24 14:00 79 18 135/86 (102) 97 07/31/24 10:45 98.1 98.1 General Appearance: Alert, Oriented X3, Cooperative, No acute distress HEENT: Atraumatic, PERRLA, EOMI, Mucous membr. moist/pink Respiratory: Clear to auscultation, Normal air movement Cardiovascular: Regular rate, Normal S1, Normal S2, No murmurs Abdominal: Normal bowel sounds, Soft, No hepatospenomegaly, No masses, Other (Suprapubic tenderness) Extremities: No clubbing, No cyanosis, Normal pulses, No tenderness/swelling Skin: No rashes, No breakdown, No significant lesion Neuro: Normal gait, Normal speech, Strength at 5/5 X4 ext, Normal tone, Sensation intact, Cranial nerves 3-12 NL, Reflexes 2+ Psych/Mental Status: Mental status NL, Mood NL Labs/Xrays labs And Imaging reviewed Labs Test 07/31/24 11:46 Range/Units White Blood Count 8.1 4.4-10.8 10^3/uL Red Blood Count 4.36 L 4.5-5.90 10^6/uL Hemoglobin 13.1 L 13.5-17.5 g/dL Hematocrit 38.9 L 41.0-53.0 % Mean Corpuscular Volume 89.3 80.0-100.0 fL Mean Corpuscular Hemoglobin 30.0 28.0-32.0 pg Mean Corpuscular Hemoglobin Concent 33.6 32.0-36.0 g/dL Red Cell Distribution Width 13.6 11.8-14.3 % Platelet Count 197 140-450 10^3/uL Mean Platelet Volume 7.2 6.9-10.8 fL Neutrophils (%) (Auto) 90.7 H 37.0-80.0 % Lymphocytes (%) (Auto) 4.6 L 10.0-50.0 % Monocytes (%) (Auto) 3.8 0.0-12.0 % Eosinophils (%) (Auto) 0.7 0.0-7.0 % Basophils (%) (Auto) 0.2 0.0-2.0 % Neutrophils # (Auto) 7.3 1.6-8.6 10 ^3/uL Lymphocytes # (Auto) 0.4 0.4-5.4 10 ^3/uL Monocytes # (Auto) 0.3 0-1.3 10 ^3/uL Eosinophils # (Auto) 0.1 0-0.8 10 ^3/uL Basophils # (Auto) 0 0-0.2 10 ^3/uL Nucleated Red Blood Cells 0.0 % Sodium Level 143 136-145 mmol/L Potassium Level 3.8 3.5-5.1 mmol/L Chloride Level 110 H 98-107 mmol/L Carbon Dioxide Level 23 20-31 mmol/L Anion Gap 10 5-15 Blood Urea Nitrogen 23 9-23 mg/dL Creatinine 2.35 H 0.700-1.30 mg/dL Glomerular Filtration Rate Calc 29 >90 mL/min BUN/Creatinine Ratio 9.8 L 10.0-20.0 Serum Glucose 124 H 74-106 mg/dL Calcium Level 8.8 8.7-10.4 mg/dL Total Bilirubin 0.3 0.2-1.0 mg/dL Aspartate Amino Transferase (AST) 25 13-40 U/L Alanine Aminotransferase (ALT) 13 7-40 U/L Alkaline Phosphatase 105 46-116 U/L Total Protein 6.8 5.7-8.2 g/dL Albumin 4.0 3.2-4.8 g/dL Assessment/Plan Assessment/Plan Bladder Obstruction/UTI New Ambriz placed UA pending Monitoring urine output Resume home meds-Flomax Diabetes mellitus type 2 accuCheks a.c. HS insulin sliding scale Diabetic diet VTE prophylaxis not indicated GI prophylaxis not indicated Plan discussed with: Patient Date of Service: Jul 31, 2024 Billing Provider: JOSSELINE DAVIS Common Visit Codes: [id number] INP/OBS CARE (HIGH) JOSSELINE DAVIS Jul 31, 2024 14:52
[2024-07-31] MEDS ORDERED: DEXTROSE (50%) 50ML SYRG IV PRN (16:15)
[2024-07-31 18:26] VITALS: PULSE 71; RESP 18; O2SAT 96
[2024-07-31] MEDS: ACCU-CHEK COMFORT CURVE STRIP VI SCH (19:21)
[2024-07-31] MEDS: TAMSULOSIN HYDROCHLORIDE 0.4 MG CAP PO SCH (19:21)
[2024-07-31] MEDS: InsuLIN REG 1unit/0.01ml Soln (100units/ml) SC SCH (19:21)
[2024-07-31 21:00] VITALS: BP 112/71; PULSE 65; RESP 17; TEMP 97.5; O2SAT 96
[2024-08-01 01:00] VITALS: BP 94/58; PULSE 69; RESP 17; TEMP 97.6; O2SAT 97
[2024-08-01 02:05] LABS: Urine Bacteria MANY /hpf (None Seen); Urine Blood 3+ /uL (Negative); Urine Budding Yeast FEW /hpf (None Seen); Urine Clarity Ex.Turbid (Clear); Urine Color Light-Brown (Yellow); Urine Mucus FEW (None Seen); Urine Protein, UAD 1+ (Negative); Urine Specific Gravity 1.007 (1.001-1.035); Urine Squamous Epithelial Cell None Seen /hpf (<5); Urine Urobilinogen Normal (Negative); Urine WBC 840 /HPF (0-3); Urine WBC Clumps PRESENT /hpf (None Seen)
[2024-08-01 05:00] VITALS: BP 107/62; PULSE 62; RESP 18; TEMP 97.6; O2SAT 97
[2024-08-01 08:11] LABS: Basophils # (auto) 0 10 ^3/uL (0-0.2); Basophils % (auto) 0.5 % (0.0-2.0); Eosinophils # (auto) 0.3 10 ^3/uL (0-0.8); Eosinophils % (auto) 6.7 % (0.0-7.0); Hemoglobin 12.2 g/dL (13.5-17.5); Lymphocytes # (auto) 0.6 10 ^3/uL (0.4-5.4); Lymphocytes % (auto) 12.6 % (10.0-50.0); Mean Corpuscular Hemoglobin 29.5 pg (28.0-32.0); Mean Corpuscular Hgb Conc. 33.1 g/dL (32.0-36.0); Mean Corpuscular Volume 89.2 fL (80.0-100.0); Monocytes # (auto) 0.3 10 ^3/uL (0-1.3); Monocytes % (auto) 5.5 % (0.0-12.0); Neutrophils # (auto) 3.5 10 ^3/uL (1.6-8.6); Neutrophils % (auto) 74.7 % (37.0-80.0); Nucleated Red Blood Cells % 0.1 %; Platelet Count (auto) 169 10^3/uL (140-450); Red Blood Cells 4.14 10^6/uL (4.5-5.90); Red Cell Distribution Width 13.5 % (11.8-14.3); White Blood Cell 4.7 10^3/uL (4.4-10.8)
[2024-08-01 08:31] LABS: Alanine Aminotransferase 11 U/L (7-40); Albumin 3.4 g/dL (3.2-4.8); Alkaline Phosphatase 92 U/L (46-116); Anion Gap 11 (5-15); Aspartate Aminotransferase 19 U/L (13-40); BUN/Creatinine Ratio 10.1 (10.0-20.0); Blood Urea Nitrogen 22 mg/dL (9-23); Carbon Dioxide 25 mmol/L (20-31); Glucose 93 mg/dL (74-106); Potassium 3.9 mmol/L (3.5-5.1); Total Protein 5.8 g/dL (5.7-8.2)
[2024-08-01 08:39] LABS: Bilirubin, Total 0.3 mg/dL (0.2-1.0); Calcium 8.6 mg/dL (8.7-10.4); Chloride 112 mmol/L (98-107); Sodium 148 mmol/L (136-145)
[2024-08-01] MEDS: cefTRIAXone 1GM/50ML D5W 50 ML IV SCH (08:56)
[2024-08-01 09:19] VITALS: BP 96/53; PULSE 64; RESP 19; TEMP 98.2; O2SAT 95
[2024-08-01 13:00] VITALS: BP 105/68; PULSE 70; RESP 18; TEMP 98; O2SAT 96
--- NOTE | 2024-08-01 13:51 | DVHPN2 ---
Reviewed: Care Plan, H&P, Labs, Medications, Previous Orders, Radiology Changes from previous H/P or p: No Changes Eyes: No Pain, No Vision change, No Conjunctivae inflammation, No Eyelid inflammation, No Other, No Redness ENT: No Ear pain, No Ear discharge, No Nose pain, No Nose discharge, No Nose congestion, No Mouth pain, No Mouth swelling, No Throat pain, No Throat swelling, No Other Cardiovascular: No Chest Pain, No Palpitations, No Orthopnea, No Paroxysmal Noc. Dyspnea, No Edema, No Lt Headedness, No Other Respiratory: No Cough, No Dry, No Shortness of breath, No SOB with excertion, No Wheezing, No Hemoptysis, No Pleuritic Pain, No Sputum, No Other Gastrointestinal: No Nausea, No Vomiting, No Abdominal Pain, No Diarrhea, No Constipation, No Melena, No Hematochezia; Other (Suprapubic pain) Genitourinary: No Dysuria, No Frequency, No Incontinence, No Hematuria; R etention (Bladder distention); No Other Musculoskeletal: No other, No neck pain, No shoulder pain, No arm pain, No back pain, No hand pain, No leg pain, No foot pain Skin: No Rash, No Lesions, No Jaundice, No Bruising, No Other Objective Vitals Vital Signs Date Time Temp Pulse Resp B/P (MAP) Pulse Ox O2 Delivery O2 Flow Rate FiO2 08/01/24 09:19 98.2 64 19 96/53 (67) 95 98.2 07/31/24 20:00 Room Air* 0 21 Intake/Output Intake and Output 08/01/24 07:00 Output Total 2700 ml Balance -2700 ml Output Urine Total 2700 ml Medications Current Medications Medications Dose Ordered Sig/Morenita Route Start Time Stop Time Status Last Admin Dose Admin Ondansetron HCl 4 mg Q4HP PRN IV 07/31/24 16:15 Docusate Sodium 100 mg BIDPRN PRN PO 07/31/24 16:15 Diagnostic Test (Pha) 1 strip ACHS 07/31/24 17:00 08/01/24 06:04 1 STRIP Insulin Human Regular ACHS SC 07/31/24 17:00 Dextrose 50 ml UD PRN IV 07/31/24 16:15 Tamsulosin HCl 0.4 mg QPM PO 07/31/24 18:00 07/31/24 19:21 0.4 MG Ceftriaxone Sodium 50 ml @ 100 mls/hr DAILY@09 IV 08/01/24 09:00 08/01/24 08:56 100 MLS/HR Laboratory Results Laboratory Tests 08/01/24 07:00 Chemistry Test 08/01/24 07:00 Albumin 3.4 g/dL (3.2-4.8) Calcium Level 8.6 mg/dL (8.7-10.4) L Total Protein 5.8 g/dL (5.7-8.2) LFT Test 08/01/24 07:00 Alanine Aminotransferase (ALT) 11 U/L (7-40) Alkaline Phosphatase 92 U/L (46-116) Aspartate Amino Transferase (AST) 19 U/L (13-40) Total Bilirubin 0.3 mg/dL (0.2-1.0) Urinalysis Test 08/01/24 01:50 Urine Color Light-brown (Yellow) Urine Clarity Ex.turbid (Clear) Urine pH 6.0 (5.0-9.0) Urine Specific Anthony 1.007 (1.001-1.035) Urine Protein 1+ (Negative) H Urine Ketones Negative (Negative) Urine Blood 3+ /uL (Negative) H Urine Nitrite Negative (Negative) Urine Bilirubin Negative (Negative) Urine Urobilinogen Normal mg/dL (Negative) Urine Leukocyte Esterase 3+ /uL (Negative) Urine RBC 278 /hpf (0 - 3) Urine WBC Clumps Present /hpf (None Seen) Urine Microscopic WBC 840 /HPF (0-3) H Urine Squamous Epithelial Cells None seen /hpf (<5) Urine Bacteria Many /hpf (None Seen) H Urine Mucus Few (None Seen) Urine Yeast (Budding) Few /hpf (None Seen) Urine Glucose Normal mg/dL (Normal) Labs and/or images reviewed: Labs reviewed by me, Image(s) reviewed by me Assessment/Plan Assessment/Plan Sepsis secondary to urinary tract infection: Blood cultures urine cultures Rocephin Acute urinary retention status post Otoole, consult for Dr. Munguia BPH History of CVA Diabetes Time spent 50 minutes Patient is full code Advanced care planning time 20 minutes Plan discussed with: Patient My Orders Orders - VICTOR HUGO VIDALES MD Procedure Category Date Status Time Blood Culture MAKENZIE 08/01/24 Logged 13:42 Urine Bacterial MAKENZIE 08/01/24 Logged Culture 13:42 Date of Service: Aug 01, 2024 Billing Provider: VICTOR HUGO VIDALES MD Common Visit Codes: [id number] INP/OBS CARE(HIGH) Secondary Visit Codes: [id number] CARE PLAN 30 MINUTES VICTOR HUGO VIDALES MD Aug 01, 2024 13:51
[2024-08-01 17:00] VITALS: BP 96/59; PULSE 70; RESP 18; TEMP 98.7; O2SAT 94
--- NOTE | 2024-08-01 17:18 | DVHINCON2 ---
Date of service: Aug 01, 2024 Referring Physician Hospitalist Reason for Consultation acute urinary retention History of Present Illness History Source: Patient, RN Notes, MD Notes, Old Records Exam Limitations: No limitations HPI 74 yo male known to urology service for BPH. He had UroLift implants placed in 2021. He was last seen in office 02/2024 and PVR was 19 ml. Since presenting to the ER he has had a ambriz placed immediate return of [address] showed bilateral hydro with bladder distention. Home Meds Active Scripts Tamsulosin Hcl (Flomax) 0.4 Mg Cap, 1 CAP PO DAILY, #30 CAP 11 Refills Prov:LELO GREEN MD 11/04/23 Ciprofloxacin Hydrochloride (Ciprofloxacin HCl) 500 Mg Tab, 500 MG PO BID for 4 Days, #8 TAB Prov:RENE GEORGE NP 10/08/23 Cetirizine Hcl (Cetirizine Hcl) 5 Mg Tab, 10 MG PO DAILY for 14 Days, #28 TAB 0 Refills Prov:STEFANIE ARCEO NP 10/02/23 Calamine-Zinc Oxide (Calamine 8-8 %) 1 Kim Kim, 1 APPLIC EX QID for 7 Days, #1 BOTTLE 0 Refills Prov:STEFANIE ARCEO NP 10/02/23 Triamcinolone Acetonide (Triamcinolone Acetonide) 0.1 % Cre, 0.1 % EX BID for 5 Days, #120 GRAMS 0 Refills Prov:STEFANIE ARCEO NP 10/02/23 Methylprednisolone (Medrol Dosepak) 4 Mg Alexandro, 4 MG PO UD, #21 TAB 0 Refills UAD Prov:STEFANIE ARCEO NP 10/02/23 Reported Medications Cholecalciferol (VITAMIN D3) Unknown Strength Tab, OR, TAB 01/17/22 Calcium Acetate (PHOSLO CAPSULE) 667 Mg Cp, 667 MG PO DAILY, CAP 01/17/22 Past Medical History Past Surgical History: Other (urolift, prostate biopsy) Patient Family History: Patient reports no known family medical history. Review of Systems Constitutional: No symptom reported Ears, Nose, & Throat: No symptom reported Eyes: No symptom reported Pulmonary/Respiratory: No symptom reported Cardiovascular: No symptom reported Gastrointestinal: No symptom reported Genitourinary: No symptom reported Musculoskeletal: No symptom reported Skin: No symptom reported Psychiatric: No symptom reported Endocrine: No symptom reported Hemotologic/Lymphatic: No symptom reported H&P Exam Vital Signs Vital Signs Date Time Temp Pulse Resp B/P (MAP) Pulse Ox O2 Delivery O2 Flow Rate FiO2 08/01/24 09:19 98.2 64 19 96/53 (67) 95 98.2 08/01/24 08:00 Room Air* 0 21 General Appeara: Well developed, Well nourished, Normal Appearance Labs/Xrays [address] [address] Ph: [phone] DIAGNOSTIC IMAGING Diagnostic Imaging Report : [id number] Signed PATIENT: DENNIS BENZ EDWARDACCT: [id number] UNIT: [id number] : 1950 LOC: ER ROOM / BED: / AGE / SEX: 74 / M ADM STATUS: REG ER SERVICE 1309 ORDERING PHYSICIAN: RHEA NOBLE DO PROCEDURE(s): ABPL - CT AB PEL WO CON-NO ORAL OR IV REASON: Urinary symptoms, possible outlet obstruction ORDER NUMBER(s): [id number], ACCESSION NUMBER(s): [id number] CLINICAL INFORMATION: 74 years old, Male; Urinary symptoms, possible outlet obstruction. TECHNIQUE: Axial CT images of the abdomen and pelvis were obtained without IV contrast. Coronal and sagittal reformatted images were obtained, reviewed, and stored. Evaluation of the parenchymal organs is limited without IV contrast. E valuation of the bowel and mesentery is limited without oral contrast. All CT scans at this medical facility are performed using dose modulation techniques as appropriate to a performed exam including the following: Automated exposure control was utilized; adjustment of the MA and/or KV according to patient size; and use of iterative reconstruction technique. CTDIvol = 5.12 mGy DLP = 288.11 mGy-cm COMPARISON: Radiograph dated 10/05/2023. FINDINGS: Lung bases: Atelectasis in the lower lobes bilaterally. Liver: Grossly unremarkable in its noncontrast enhanced appearance. No abnormal density or focal lesion identified. Biliary: Cholecystectomy. Spleen: Unremarkable. Pancreas: Grossly unremarkable in its noncontrast enhanced appearance. Adrenal glands: Unremarkable. No mass. Kidneys and bladder: Moderate bilateral hydronephrosis and hydroureter with no obstructing calculi visualized. No renal or ureteral calculi. Bladder is markedly distended, consistent with bladder outlet obstruction in the appropriate clinical setting. Aorta/Vascular: Moderate atherosclerotic calcification. No abdominal aortic aneurysm. Retroperitoneum: No mass or lymphadenopathy. Bowel/mesentery: Nonspecific nondilated fluid-filled small bowel loops. No small bowel obstruction. Appendix is not visualized. Moderate stool in the colon. Pelvic organs: Enlarged prostate with impression on the bladder base. There is distention of the prostatic urethra, which may be seen in the setting of prior trans urethral resection of the prostate. Multiple fiducial markers are seen in the prostate. 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 Bones: No acute fracture or suspicious intraosseous lesion. IMPRESSION: 1. Severely distended bladder with moderate bilateral hydronephrosis, likely due to bladder outlet obstruction in the appropriate clinical setting. 2. Enlarged prostate with distended prostatic urethra and fiducial markers in the prostate. 3. Additional findings as detailed above. ATED BY: EDISON MOTTA DO DICTATED DATE/TIME: 07/31/24 141 SIGNED BY: EDISON MOTTA DO SIGNED DATE/TIME: 07/31/24 141 CC: Labs Test 08/01/24 07:00 08/01/24 05:39 08/01/24 01:50 Range/Units White Blood Count 4.7 # 4.4-10.8 10^3/uL Red Blood Count 4.14 L 4.5-5.90 10^6/uL Hemoglobin 12.2 L 13.5-17.5 g/dL Hematocrit 37.0 L 41.0-53.0 % Mean Corpuscular Volume 89.2 80.0-100.0 fL Mean Corpuscular Hemoglobin 29.5 28.0-32.0 pg Mean Corpuscular Hemoglobin Concent 33.1 32.0-36.0 g/dL Red Cell Distribution Width 13.5 11.8-14.3 % Platelet Count 169 140-450 10^3/uL Mean Platelet Volume 7.5 6.9-10.8 fL Neutrophils (%) (Auto) 74.7 37.0-80.0 % Lymphocytes (%) (Auto) 12.6 10.0-50.0 % Monocytes (%) (Auto) 5.5 0.0-12.0 % Eosinophils (%) (Auto) 6.7 0.0-7.0 % Basophils (%) (Auto) 0.5 0.0-2.0 % Neutrophils # (Auto) 3.5 1.6-8.6 10 ^3/uL Lymphocytes # (Auto) 0.6 0.4-5.4 10 ^3/uL Monocytes # (Auto) 0.3 0-1.3 10 ^3/uL Eosinophils # (Auto) 0.3 0-0.8 10 ^3/uL Basophils # (Auto) 0 0-0.2 10 ^3/uL Nucleated Red Blood Cells 0.1 % Sodium Level 148 #H 136-145 mmol/L Potassium Level 3.9 3.5-5.1 mmol/L Chloride Level 112 H 98-107 mmol/L Carbon Dioxide Level 25 20-31 mmol/L Anion Gap 11 5-15 Blood Urea Nitrogen 22 9-23 mg/dL Creatinine 2.17 H 0.700-1.30 mg/dL Glomerular Filtration Rate Calc 32 >90 mL/min BUN/Creatinine Ratio 10.1 10.0-20.0 Serum Glucose 93 74-106 mg/dL Calcium Level 8.6 L 8.7-10.4 mg/dL Total Bilirubin 0.3 0.2-1.0 mg/dL Aspartate Amino Transferase (AST) 19 13-40 U/L Alanine Aminotransferase (ALT) 11 7-40 U/L Alkaline Phosphatase 92 46-116 U/L Total Protein 5.8 5.7-8.2 g/dL Albumin 3.4 3.2-4.8 g/dL POC Glucose 97 70-106 mg/dl Urine Color Light-brown Yellow Urine Clarity Ex.turbid Clear Urine pH 6.0 5.0-9.0 Urine Specific [place] 1.007 1.001-1.035 Urine Protein 1+ H Negative Urine Ketones Negative Negative Urine Blood 3+ H Negative /uL Urine Nitrite Negative Negative Urine Bilirubin Negative Negative Urine Urobilinogen Normal Negative mg/dL Urine Leukocyte Esterase 3+ Negative /uL Urine RBC 278 0 - 3 /hpf Urine WBC Clumps Present None Seen /hpf Urine Microscopic WBC 840 H 0-3 /HPF Urine Squamous Epithelial Cells None seen <5 /hpf Urine Bacteria Many H None Seen /hpf Urine Mucus Few None Seen Urine Yeast (Budding) Few None Seen /hpf Urine Glucose Normal Normal mg/dL Assessment/Plan Problem List: (1) BPH loc w urin obs/LUTS (2) Urinary retention (3) Bilateral hydronephrosis (4) Ambriz catheter in place Plan ambriz exchanges monthly outpt f/u with urology 2 weeks treat UTI Plan discussed with: Patient, Other [employer] Aug 01, 2024 17:18
[2024-08-01 21:00] VITALS: BP 98/60; PULSE 93; RESP 16; TEMP 96.6; O2SAT 100
[2024-08-02 01:00] VITALS: BP 107/71; PULSE 82; RESP 16; TEMP 98.1; O2SAT 97
[2024-08-02 05:00] VITALS: BP 99/68; PULSE 71; RESP 16; TEMP 97.7; O2SAT 95
[2024-08-02 09:00] VITALS: BP 94/67; PULSE 75; RESP 20; TEMP 98.7; O2SAT 92
--- NOTE | 2024-08-02 11:27 | DVHPN2 ---
Reviewed: Care Plan, H&P, Labs, Medications, Previous Orders, Radiology Changes from previous H/P or p: No Changes Eyes: No Pain, No Vision change, No Conjunctivae inflammation, No Eyelid inflammation, No Other, No Redness ENT: No Ear pain, No Ear discharge, No Nose pain, No Nose discharge, No Nose congestion, No Mouth pain, No Mouth swelling, No Throat pain, No Throat swelling, No Other Cardiovascular: No Chest Pain, No Palpitations, No Orthopnea, No Paroxysmal Noc. Dyspnea, No Edema, No Lt Headedness, No Other Respiratory: No Cough, No Dry, No Shortness of breath, No SOB with excertion, No Wheezing, No Hemoptysis, No Pleuritic Pain, No Sputum, No Other Gastrointestinal: No Nausea, No Vomiting, No Abdominal Pain, No Diarrhea, No Constipation, No Melena, No Hematochezia; Other (Suprapubic pain) Genitourinary: No Dysuria, No Frequency, No Incontinence, No Hematuria; R etention (Bladder distention); No Other Musculoskeletal: No other, No neck pain, No shoulder pain, No arm pain, No back pain, No hand pain, No leg pain, No foot pain Skin: No Rash, No Lesions, No Jaundice, No Bruising, No Other Objective Vitals Vital Signs Date Time Temp Pulse Resp B/P (MAP) Pulse Ox O2 Delivery O2 Flow Rate FiO2 08/02/24 09:00 98.7 75 20 94/67 (76) 92 98.7 08/02/24 08:00 Room Air* 0 21 Intake/Output Intake and Output 08/02/24 07:00 Intake Total 640 ml Output Total 1350 ml Balance -710 ml Intake Oral 590 ml IV Total 50 ml Output Urine Total 1350 ml # Bowel Movements 1 Medications Current Medications Medications Dose Ordered Sig/Morenita Route Start Time Stop Time Status Last Admin Dose Admin Ondansetron HCl 4 mg Q4HP PRN IV 07/31/24 16:15 Docusate Sodium 100 mg BIDPRN PRN PO 07/31/24 16:15 Diagnostic Test (Pha) 1 strip ACHS 07/31/24 17:00 08/02/24 07:05 1 STRIP Insulin Human Regular ACHS SC 07/31/24 17:00 08/01/24 16:36 2 UNITS Dextrose 50 ml UD PRN IV 07/31/24 16:15 Tamsulosin HCl 0.4 mg QPM PO 07/31/24 18:00 08/01/24 17:38 0.4 MG Ceftriaxone Sodium 50 ml @ 100 mls/hr DAILY@09 IV 08/01/24 09:00 08/02/24 08:30 100 MLS/HR Laboratory Results Laboratory Tests 08/01/24 07:00 Urinalysis Test 08/01/24 01:50 Urine Color Light-brown (Yellow) Urine Clarity Ex.turbid (Clear) Urine pH 6.0 (5.0-9.0) Urine Specific [place] 1.007 (1.001-1.035) Urine Protein 1+ (Negative) H Urine Ketones Negative (Negative) Urine Blood 3+ /uL (Negative) H Urine Nitrite Negative (Negative) Urine Bilirubin Negative (Negative) Urine Urobilinogen Normal mg/dL (Negative) Urine Leukocyte Esterase 3+ /uL (Negative) Urine RBC 278 /hpf (0 - 3) Urine WBC Clumps Present /hpf (None Seen) Urine Microscopic WBC 840 /HPF (0-3) H Urine Squamous Epithelial Cells None seen /hpf (<5) Urine Bacteria Many /hpf (None Seen) H Urine Mucus Few (None Seen) Urine Yeast (Budding) Few /hpf (None Seen) Urine Glucose Normal mg/dL (Normal) Microbiology Microbiology Date/Time Source Procedure Growth Status 08/01/24 01:50 Voided Urine Urine Culture - Preliminary Resulted Labs and/or images reviewed: Labs reviewed by me, Image(s) reviewed by me Assessment/Plan Assessment/Plan Sepsis secondary to urinary tract infection: Blood cultures pending, urine cultures contaminated, repeat urine cultures, continue Rocephin Acute urinary retention status post [place], consult for Dr. Munguia BPH urinary obstruction Bilateral hydronephrosis History of CVA Diabetes Time spent 50 minutes Patient is full code Plan discussed with: Patient My Orders Orders - VICTOR HUGO VIDALES MD Procedure Category Date Status Time Blood Culture MAKENZIE 08/01/24 In Process 13:42 Urine Bacterial MAKENZIE 08/01/24 In Process Culture 13:42 * Urology Consult CONS 08/01/24 Transmitted 13:43 Communication Order ORDERS 08/02/24 Verified 11:07 Date of Service: Aug 02, 2024 Billing Provider: VICTOR HUGO VIDALES MD Common Visit Codes: [id number] INP/OBS CARE(HIGH) VICTOR HUGO VIDALES MD Aug 02, 2024 11:27
[2024-08-02 13:00] VITALS: BP 100/63; PULSE 68; RESP 16; TEMP 98.1; O2SAT 99
[2024-08-02 17:00] VITALS: BP 104/72; PULSE 75; RESP 19; TEMP 98.6; O2SAT 92
[2024-08-02] MEDS: DOCUSATE SOD 100 MG CAP PO PRN (18:10)
[2024-08-02 21:00] VITALS: BP 133/80; PULSE 80; RESP 19; TEMP 96.4; O2SAT 96
[2024-08-03 01:00] VITALS: BP 110/70; PULSE 73; RESP 18; TEMP 96.4; O2SAT 94
[2024-08-03 05:00] VITALS: BP 103/66; PULSE 70; RESP 18; TEMP 96.1; O2SAT 94
[2024-08-03 09:00] VITALS: BP 118/74; PULSE 64; RESP 16; TEMP 98.1; O2SAT 98
--- NOTE | 2024-08-03 11:28 | DVHPN2 ---
Reviewed: Care Plan, H&P, Labs, Medications, Previous Orders, Radiology Changes from previous H/P or p: No Changes Eyes: No Pain, No Vision change, No Conjunctivae inflammation, No Eyelid inflammation, No Other, No Redness ENT: No Ear pain, No Ear discharge, No Nose pain, No Nose discharge, No Nose congestion, No Mouth pain, No Mouth swelling, No Throat pain, No Throat swelling, No Other Cardiovascular: No Chest Pain, No Palpitations, No Orthopnea, No Paroxysmal Noc. Dyspnea, No Edema, No Lt Headedness, No Other Respiratory: No Cough, No Dry, No Shortness of breath, No SOB with excertion, No Wheezing, No Hemoptysis, No Pleuritic Pain, No Sputum, No Other Gastrointestinal: No Nausea, No Vomiting, No Abdominal Pain, No Diarrhea, No Constipation, No Melena, No Hematochezia; Other (Suprapubic pain) Genitourinary: No Dysuria, No Frequency, No Incontinence, No Hematuria; R etention (Bladder distention); No Other Musculoskeletal: No other, No neck pain, No shoulder pain, No arm pain, No back pain, No hand pain, No leg pain, No foot pain Skin: No Rash, No Lesions, No Jaundice, No Bruising, No Other Objective Vitals Vital Signs Date Time Temp Pulse Resp B/P (MAP) Pulse Ox O2 Delivery O2 Flow Rate FiO2 08/03/24 09:00 98.1 64 16 118/74 (89) 98 98.1 08/02/24 20:00 Room Air* 0 21 Intake/Output Intake and Output 08/03/24 06:59 Intake Total 600 ml Output Total 1200 ml Balance -600 ml Intake Oral 550 ml IV Total 50 ml Output Urine Total 1200 ml Medications Current Medications Medications Dose Ordered Sig/Morenita Route Start Time Stop Time Status Last Admin Dose Admin Ondansetron HCl 4 mg Q4HP PRN IV 07/31/24 16:15 Docusate Sodium 100 mg BIDPRN PRN PO 07/31/24 16:15 08/03/24 05:55 100 MG Diagnostic Test (Pha) 1 strip ACHS 07/31/24 17:00 08/03/24 05:39 1 STRIP Insulin Human Regular ACHS SC 07/31/24 17:00 08/01/24 16:36 2 UNITS Dextrose 50 ml UD PRN IV 07/31/24 16:15 Tamsulosin HCl 0.4 mg QPM PO 07/31/24 18:00 08/02/24 18:10 0.4 MG Ceftriaxone Sodium 50 ml @ 100 mls/hr DAILY@09 IV 08/01/24 09:00 08/03/24 10:08 100 MLS/HR Laboratory Results Laboratory Tests 08/01/24 07:00 Urinalysis Test 08/01/24 01:50 Urine Color Light-brown (Yellow) Urine Clarity Ex.turbid (Clear) Urine pH 6.0 (5.0-9.0) Urine Specific [place] 1.007 (1.001-1.035) Urine Protein 1+ (Negative) H Urine Ketones Negative (Negative) Urine Blood 3+ /uL (Negative) H Urine Nitrite Negative (Negative) Urine Bilirubin Negative (Negative) Urine Urobilinogen Normal mg/dL (Negative) Urine Leukocyte Esterase 3+ /uL (Negative) Urine RBC 278 /hpf (0 - 3) Urine WBC Clumps Present /hpf (None Seen) Urine Microscopic WBC 840 /HPF (0-3) H Urine Squamous Epithelial Cells None seen /hpf (<5) Urine Bacteria Many /hpf (None Seen) H Urine Mucus Few (None Seen) Urine Yeast (Budding) Few /hpf (None Seen) Urine Glucose Normal mg/dL (Normal) Microbiology Microbiology Date/Time Source Procedure Growth Status 08/01/24 14:31 Blood Blood Culture - Preliminary NO GROWTH AFTER 24 HOURS OF INCUBATION. Resulted 08/01/24 01:50 Voided Urine Urine Culture - Final Complete Labs and/or images reviewed: Labs reviewed by me, Image(s) reviewed by me Assessment/Plan Assessment/Plan Sepsis secondary to urinary tract infection: Blood cultures pending, urine cultures contaminated, repeat urine cultures, continue Rocephin Acute urinary retention status post [place], consult for Dr. Munguia BPH urinary obstruction Bilateral hydronephrosis History of CVA Diabetes Time spent 50 minutes Patient is full code Plan discussed with: Patient, Spouse My Orders Orders - VICTOR HUGO VIDALES MD Procedure Category Date Status Time Urine Bacterial MAKENZIE 08/03/24 Uncollected Culture 01:02 Date of Service: Aug 03, 2024 Billing Provider: VICTOR HUGO VIDALES MD Common Visit Codes: [id number] INP/OBS CARE(HIGH) VICTOR HUGO VIDALES MD Aug 03, 2024 11:28
[2024-08-03 13:00] VITALS: BP 100/63; PULSE 69; RESP 16; TEMP 98.4; O2SAT 96
[2024-08-03 17:00] VITALS: BP 100/62; PULSE 78; RESP 18; TEMP 98.3; O2SAT 98
[2024-08-03] MEDS ORDERED: HYDROcodone-ACET 5/325MG TAB PO PRN (17:45)
[2024-08-03] MEDS: ONDANSETRON HCL 4 MG/2 ML VIAL IV PRN (18:11)
[2024-08-03 21:00] VITALS: BP 105/66; PULSE 79; RESP 18; TEMP 98.6; O2SAT 95
--- NOTE | 2024-08-03 22:24 | DVHINCON2 ---
Date of service: Aug 03, [address] Solano Reason for Consultation reports for seizures on Saturday as primary sedation for visit History of Present Illness It is a difficult and complicated consultation. is a poor historian, and she is emotional, unhappy Mr. Gambino is a right-handed male with a history of hypertension, diabetes, dyslipidemia, hemorrhagic stroke, depression, BPH. He came to the [facility] on 07/31/24, for decrease urine output s/p Otoole catheter placement, but he was has convulsion. At that time, the patient was is awake, but he is only oriented x2, he does not know why he came to the hospital. History is obtained from his , she is not a good historian, she is not happy because doctors did not recognize the patient was had brain tumor for many years. I saw him in my office till end of last seizure. Our bilingual nursing staff helped me On 07/27/2024, when he and his was visiting [place], the patient was had for episodic event in that he was shaking all over body, eyes popping out, rolling back, nonresponsive, there was no oral trauma but he had associated incontinence. The 1st event was 10 minutes, the following three events were more than 10 minutes. The patient was seen in the local hospital, where he had CT head, but no MRI or other testing. The patient was given a medication, according his paperwork from the [facility], Fenitoina (Phenytoin) 130mg Q8H, Fenitoina (Phenytoin) 100mg Q6H was prescribed on discharge. Coincidentally after this activity, he can not walk He has a history of dementia/memory loss since 10/13/2018 after a stroke. He was obvious cognitive dysfunction, he needs family support for arms everything in his daily living. There is no family he was dementia. On 09/12/2018, the patient was developed acute headache, mild left-sided weakness, the patient was found to have basal ganglia intraparenchymal hematoma, secondary ventricular hemorrhage, the patient was treated in the [facility] where he was received craniotomy and GUEST HOUSE MANAGER shunt He was no specific symptoms, but MR brain with without contrast in 10/2021 she was on hands lesion in the left frontal lobe, company A[employer]ia was suspect, and the patient was referred to see a neurosurgeon on 02/11/2024. claimed that the patient was had surgery in the [facility] with 80% of the mass removed voiced that she wanted the patient be transferred to [facility] [phone] Urinalysis, 08/01/2024: UTI WBC/HB/PLT/MCV, 08/01/2024: 4.7/12.2/169/89.2 BUN/CR, 08/01/2024: 22/2.17 Liver function tests, 08/01/2024: Unremarkable Reports from office Vitamin B12, 03/2020: 526 TSH, 03/2020: 2.19 CT head, 08/29/2021: 1. Right parietal approach ventriculostomy catheter terminating in the body of the right lateral ventricle. The ventricles are nondilated and imaged portion of the catheter is intact. 2. Anterior to the left frontal horn there is a 1.6 cm high attenuation lesion with associated calcification or mineralization and mild mass-effect. This does not have the typical appearance of hemorrhage and is highly suspicious for a mass lesion. Further characterization with postcontrast MRI is recommended. 3. Mild presumed small vessel ischemic disease MRI head, 10/2021: 1. There is an enhancing intraparenchymal mass adjacent to the left frontal horn measuring up to 2 cm. There is associated chronic hemorrhage peripherally. The differential includes an atypical cavernous malformation as well as a hemorrhagic neoplasm. Comparison with any prior imaging is recommended. Continued close follow-up is recommended to ensure stability. There is no adjacent edema to suggest recent hemorrhage. 2. Mild chronic small vessel ischemic disease. 3. Reidentified right parietal approach ventriculostomy ca theter likely terminating in the body of the right lateral ventricle. The ventricles are unchanged in size without hydrocephalus Past Medical History Hypertension, diabetes, dyslipidemia, hemorrhagic stroke, depression, BPH, GERD Past Surgical History PEG, ventriculo-peritoneal shunt, cholecystectomy, thyroid surgery, TURP, brain mass resection recently Family History: Patient reports no known family medical history. Family History High cholesterol, Diabetes. No dementia Social History He was tobacco smoke, he was no history of alcohol or drug abuse Allergies: Coded Allergies: Acetaminophen (Verified Allergy, Unknown, 01/28/19) Home Meds Active Scripts Tamsulosin Hcl (Flomax) 0.4 Mg Cap, 1 CAP PO DAILY, #30 CAP 11 Refills Prov:LELO GREEN MD 11/04/23 Ciprofloxacin Hydrochloride (Ciprofloxacin HCl) 500 Mg Tab, 500 MG PO BID for 4 Days, #8 TAB Prov:RENE [facility] SPECIALIST 10/08/23 Cetirizine Hcl (Cetirizine Hcl) 5 Mg Tab, 10 MG PO DAILY for 14 Days, #28 TAB 0 Refills Prov:STEFANIE ARCEO [facility] SPECIALIST 10/02/23 Calamine-Zinc Oxide (Calamine 8-8 %) 1 Kim Kim, 1 APPLIC EX QID for 7 Days, #1 BOTTLE 0 Refills Prov:STEFANIE ARCEO [facility] SPECIALIST 10/02/23 Triamcinolone Acetonide (Triamcinolone Acetonide) 0.1 % Cre, 0.1 % EX BID for 5 Days, #120 GRAMS 0 Refills Prov:STEFANIE ARCEO [facility] SPECIALIST 10/02/23 Methylprednisolone (Medrol Dosepak) 4 Mg Alexandro, 4 MG PO UD, #21 TAB 0 Refills UAD Prov:STEFANIE ARCEO [facility] SPECIALIST 10/02/23 Reported Medications Cholecalciferol (VITAMIN D3) Unknown Strength Tab, OR, TAB 01/17/22 Calcium Acetate (PHOSLO CAPSULE) 667 Mg Cp, 667 MG PO DAILY, CAP 01/17/22 Current Medications Current Medications Medications (Trade) Dose Ordered Sig/Morenita Route PRN Reason Start Time Stop Time Status Last Admin Acetaminophen/ Hydrocodone Bitart ([place] 5/325MG Tab) 1 tab Q6HPRN PRN PO MODERATE PAIN (4-6 PAIN SCALE) 08/03/24 17:45 UNV Review of Systems As above, the other systems are negative Vital Signs Vital Signs Date Time Temp Pulse Resp B/P (MAP) Pulse Ox O2 Delivery O2 Flow Rate FiO2 08/03/24 17:00 98.3 78 18 100/62 (75) 98 98.3 08/03/24 08:10 Room Air* 0 21 Physical Exam GENERAL EXAM: General: the patient is well developed and nourished. No acute distress. HEENT: Normocephalic, neck is supple, no carotid bruits. No mass. RESPIRATORY: Normal respiratory effort with symmetrical lung expansion. Lungs clear to auscultation. CARDIOVASCULAR: Regular rate and rhythm with no murmurs. S1, S2. ABDOMEN: Soft, nontender, normal bowel sound NEUROLOGICAL: MENTAL STATUS: HPI SPEECH, LANGUAGE, HIGHER CORTICAL FUNCTION: no aphasia or dysathria. CRANIAL NERVES: #2: Intact visual hurst to confrontation. The optic discs were sharp. #3,4,6: Pupils are equal, round and reactive. EOMs full and conjugate. #5: Facial sensation intact in all three divisions bilaterally. Mandibular strength intact. #7: Facial muscles symmetrical and strength intact. #8: Hearing grossly normal to voice. #9,10: Uvula and soft palate rise in the midline. Swallow and voice are normal. #11: Trapezius and sternomastoid strength intact bilaterally. #12: Tongue midline. No fasciculations or atrophy. SENSATION: Sensation to touch and pinprick is normal. MOTOR: Normal tone in the upper and lower extremity. Normal muscle bulk. No fasciculations. No abnormal movements or posturing. Muscle strength of the major groups in the upper extremities is 5/5. Muscle strength of the major groups in the lower extremities is 5/5. REFLEXES: Deep tendon reflexes are symmetrical. No pathological reflexes. CEREBELLAR/COORDINATION: Finger to nose isre normal bilaterally. GAIT/STATION: deferred. Labs/Diagnostic Data Labs Test 08/03/24 20:26 08/01/24 07:00 08/01/24 01:50 Range/Units POC Glucose 168 H 70-106 mg/dl White Blood Count 4.7 # 4.4-10.8 10^3/uL Red Blood Count 4.14 L 4.5-5.90 10^6/uL Hemoglobin 12.2 L 13.5-17.5 g/dL Hematocrit 37.0 L 41.0-53.0 % Mean Corpuscular Volume 89.2 80.0-100.0 fL Mean Corpuscular Hemoglobin 29.5 28.0-32.0 pg Mean Corpuscular Hemoglobin Concent 33.1 32.0-36.0 g/dL Red Cell Distribution Width 13.5 11.8-14.3 % Platelet Count 169 140-450 10^3/uL Mean Platelet Volume 7.5 6.9-10.8 fL Neutrophils (%) (Auto) 74.7 37.0-80.0 % Lymphocytes (%) (Auto) 12.6 10.0-50.0 % Monocytes (%) (Auto) 5.5 0.0-12.0 % Eosinophils (%) (Auto) 6.7 0.0-7.0 % Basophils (%) (Auto) 0.5 0.0-2.0 % Neutrophils # (Auto) 3.5 1.6-8.6 10 ^3/uL Lymphocytes # (Auto) 0.6 0.4-5.4 10 ^3/uL Monocytes # (Auto) 0.3 0-1.3 10 ^3/uL Eosinophils # (Auto) 0.3 0-0.8 10 ^3/uL Basophils # (Auto) 0 0-0.2 10 ^3/uL Nucleated Red Blood Cells 0.1 % Sodium Level 148 #H 136-145 mmol/L Potassium Level 3.9 3.5-5.1 mmol/L Chloride Level 112 H 98-107 mmol/L Carbon Dioxide Level 25 20-31 mmol/L Anion Gap 11 5-15 Blood Urea Nitrogen 22 9-23 mg/dL Creatinine 2.17 H 0.700-1.30 mg/dL Glomerular Filtration Rate Calc 32 >90 mL/min BUN/Creatinine Ratio 10.1 10.0-20.0 Serum Glucose 93 74-106 mg/dL Calcium Level 8.6 L 8.7-10.4 mg/dL Total Bilirubin 0.3 0.2-1.0 mg/dL Aspartate Amino Transferase (AST) 19 13-40 U/L Alanine Aminotransferase (ALT) 11 7-40 U/L Alkaline Phosphatase 92 46-116 U/L Total Protein 5.8 5.7-8.2 g/dL Albumin 3.4 3.2-4.8 g/dL Urine Color Light-brown Yellow Urine Clarity Ex.turbid Clear Urine pH 6.0 5.0-9.0 Urine Specific [place] 1.007 1.001-1.035 Urine Protein 1+ H Negative Urine Ketones Negative Negative Urine Blood 3+ H Negative /uL Urine Nitrite Negative Negative Urine Bilirubin Negative Negative Urine Urobilinogen Normal Negative mg/dL Urine Leukocyte Esterase 3+ Negative /uL Urine RBC 278 0 - 3 /hpf Urine WBC Clumps Present None Seen /hpf Urine Microscopic WBC 840 H 0-3 /HPF Urine Squamous Epithelial Cells None seen <5 /hpf Urine Bacteria Many H None Seen /hpf Urine Mucus Few None Seen Urine Yeast (Budding) Few None Seen /hpf Urine Glucose Normal Normal mg/dL Microbiology Date/Time Source Procedure Growth Status 08/01/24 14:31 Blood Blood Culture - Preliminary NO GROWTH AFTER 48 HOURS OF INCUBATION. 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 Although this document has been carefully reviewed, there may still be some phonetic and typographical errors. These areas are purely typographical due to imperfections of the software programs, and do not reflect any compromise in the patient's medical care. Plan discussed with: Spouse, Other TANYA BURT MD Aug 03, 2024 22:24
[2024-08-03] MEDS: levETIRAcetam 1000 mg/100ml 100 ML IV ONE (23:30)
[2024-08-03] MEDS ORDERED: LORazepam 2MG/ML-1ML VIAL IV PRN ×2 (23:30)
[2024-08-04 01:00] VITALS: BP 103/70; PULSE 85; RESP 17; TEMP 98.7; O2SAT 93
[2024-08-04 05:00] VITALS: BP 78/79; PULSE 79; RESP 16; TEMP 97.7; O2SAT 94
[2024-08-04 08:56] VITALS: BP 94/57; PULSE 77; RESP 16; TEMP 98.2; O2SAT 93
--- NOTE | 2024-08-04 09:32 | DVHPN2 ---
Reviewed: Care Plan, H&P, Labs, Medications, Previous Orders, Radiology Changes from previous H/P or p: No Changes Eyes: No Pain, No Vision change, No Conjunctivae inflammation, No Eyelid inflammation, No Other, No Redness ENT: No Ear pain, No Ear discharge, No Nose pain, No Nose discharge, No Nose congestion, No Mouth pain, No Mouth swelling, No Throat pain, No Throat swelling, No Other Cardiovascular: No Chest Pain, No Palpitations, No Orthopnea, No Paroxysmal Noc. Dyspnea, No Edema, No Lt Headedness, No Other Respiratory: No Cough, No Dry, No Shortness of breath, No SOB with excertion, No Wheezing, No Hemoptysis, No Pleuritic Pain, No Sputum, No Other Gastrointestinal: No Nausea, No Vomiting, No Abdominal Pain, No Diarrhea, No Constipation, No Melena, No Hematochezia; Other (Suprapubic pain) Genitourinary: No Dysuria, No Frequency, No Incontinence, No Hematuria; R etention (Bladder distention); No Other Musculoskeletal: No other, No neck pain, No shoulder pain, No arm pain, No back pain, No hand pain, No leg pain, No foot pain Skin: No Rash, No Lesions, No Jaundice, No Bruising, No Other Objective Vitals Vital Signs Date Time Temp Pulse Resp B/P (MAP) Pulse Ox O2 Delivery O2 Flow Rate FiO2 08/04/24 08:56 98.2 77 16 94/57 (69) 93 98.2 08/04/24 08:10 Room Air* 0 21 Intake/Output Intake and Output 08/04/24 07:00 Intake Total 1600 ml Output Total 1360 ml Balance 240 ml Intake Oral 1550 ml IV Total 50 ml Output Urine Total 1360 ml Medications Current Medications Medications Dose Ordered Sig/Morenita Route Start Time Stop Time Status Last Admin Dose Admin Ondansetron HCl 4 mg Q4HP PRN IV 07/31/24 16:15 08/03/24 18:11 4 MG Docusate Sodium 100 mg BIDPRN PRN PO 07/31/24 16:15 08/03/24 05:55 100 MG Diagnostic Test (Pha) 1 strip ACHS 07/31/24 17:00 08/04/24 06:38 1 STRIP Insulin Human Regular ACHS SC 07/31/24 17:00 08/03/24 22:20 3 UNITS Dextrose 50 ml UD PRN IV 07/31/24 16:15 Tamsulosin HCl 0.4 mg QPM PO 07/31/24 18:00 08/03/24 18:11 0.4 MG Ceftriaxone Sodium 50 ml @ 100 mls/hr DAILY@09 IV 08/01/24 09:00 08/03/24 10:08 100 MLS/HR Acetaminophen/ Hydrocodone Bitart 1 tab Q6HPRN PRN PO 08/03/24 17:45 UNV Lorazepam 1 mg ONCE PRN IV 08/03/24 23:30 Levetiracetam 500 mg BID PO 08/04/24 10:00 Lorazepam 1 mg Q5MINP PRN IV 08/03/24 23:30 Laboratory Results Laboratory Tests 08/01/24 07:00 Urinalysis Test 08/01/24 01:50 Urine Color Light-brown (Yellow) Urine Clarity Ex.turbid (Clear) Urine pH 6.0 (5.0-9.0) Urine Specific [place] 1.007 (1.001-1.035) Urine Protein 1+ (Negative) H Urine Ketones Negative (Negative) Urine Blood 3+ /uL (Negative) H Urine Nitrite Negative (Negative) Urine Bilirubin Negative (Negative) Urine Urobilinogen Normal mg/dL (Negative) Urine Leukocyte Esterase 3+ /uL (Negative) Urine RBC 278 /hpf (0 - 3) Urine WBC Clumps Present /hpf (None Seen) Urine Microscopic WBC 840 /HPF (0-3) H Urine Squamous Epithelial Cells None seen /hpf (<5) Urine Bacteria Many /hpf (None Seen) H Urine Mucus Few (None Seen) Urine Yeast (Budding) Few /hpf (None Seen) Urine Glucose Normal mg/dL (Normal) Microbiology Microbiology Date/Time Source Procedure Growth Status 08/01/24 14:31 Blood Blood Culture - Preliminary NO GROWTH AFTER 48 HOURS OF INCUBATION. Resulted 08/01/24 01:50 Voided Urine Urine Culture - Final Complete Labs and/or images reviewed: Labs reviewed by me, Image(s) reviewed by me Assessment/Plan Assessment/Plan New onset grand mal seizure, placed on Keppra, seen by Neurology Dr. 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 Ezra edmonds, advised outpatient cystoscopy BPH urinary obstruction Bilateral hydronephrosis History of CVA Diabetes Discussed with the on the phone and she is agreeable for the patient to be discharged home; LEEROY Guadalupe at bedside Time spent 50 minutes Patient is full code Plan discussed with: Patient Date of Service: Aug 04, 2024 Billing Provider: VICTOR HUGO VIDALES MD Common Visit Codes: [id number] INP/OBS CARE(HIGH) VICTOR HUGO VIDALES MD Aug 04, 2024 09:32
[2024-08-04] MEDS ORDERED: CIPR-173 PO (09:33)
[2024-08-04] MEDS ORDERED: LEVE500T40 PO (09:33)
--- NOTE | 2024-08-04 09:37 | DVHDS2 ---
Discharge Summary Date of Admission Jul 31, 2024 at 16:03 Date of Discharge: Aug 04, 2024 Admitting Diagnosis Seizures Wounds: None Labs/Diagnostic Data: Laboratory Results Test 08/04/24 05:42 08/01/24 07:00 08/01/24 01:50 POC Glucose 93 mg/dl (70-106) White Blood Count 4.7 10^3/uL (4.4-10.8) Red Blood Count 4.14 10^6/uL (4.5-5.90) Hemoglobin 12.2 g/dL (13.5-17.5) Hematocrit 37.0 % (41.0-53.0) Mean Corpuscular Volume 89.2 fL (80.0-100.0) Mean Corpuscular Hemoglobin 29.5 pg (28.0-32.0) Mean Corpuscular Hemoglobin Concent 33.1 g/dL (32.0-36.0) Red Cell Distribution Width 13.5 % (11.8-14.3) Platelet Count 169 10^3/uL (140-450) Mean Platelet Volume 7.5 fL (6.9-10.8) Neutrophils (%) (Auto) 74.7 % (37.0-80.0) Lymphocytes (%) (Auto) 12.6 % (10.0-50.0) Monocytes (%) (Auto) 5.5 % (0.0-12.0) Eosinophils (%) (Auto) 6.7 % (0.0-7.0) Basophils (%) (Auto) 0.5 % (0.0-2.0) Neutrophils # (Auto) 3.5 10 ^3/uL (1.6-8.6) Lymphocytes # (Auto) 0.6 10 ^3/uL (0.4-5.4) Monocytes # (Auto) 0.3 10 ^3/uL (0-1.3) Eosinophils # (Auto) 0.3 10 ^3/uL (0-0.8) Basophils # (Auto) 0 10 ^3/uL (0-0.2) Nucleated Red Blood Cells 0.1 % Sodium Level 148 mmol/L (136-145) Potassium Level 3.9 mmol/L (3.5-5.1) Chloride Level 112 mmol/L (98-107) Carbon Dioxide Level 25 mmol/L (20-31) Anion Gap 11 (5-15) Blood Urea Nitrogen 22 mg/dL (9-23) Creatinine 2.17 mg/dL (0.700-1.30) Glomerular Filtration Rate Calc 32 mL/min (>90) BUN/Creatinine Ratio 10.1 (10.0-20.0) Serum Glucose 93 mg/dL (74-106) Calcium Level 8.6 mg/dL (8.7-10.4) Total Bilirubin 0.3 mg/dL (0.2-1.0) Aspartate Amino Transferase (AST) 19 U/L (13-40) Alanine Aminotransferase (ALT) 11 U/L (7-40) Alkaline Phosphatase 92 U/L (46-116) Total Protein 5.8 g/dL (5.7-8.2) Albumin 3.4 g/dL (3.2-4.8) Urine Color Light-brown (Yellow) Urine Clarity Ex.turbid (Clear) Urine pH 6.0 (5.0-9.0) Urine Specific [place] 1.007 (1.001-1.035) Urine Protein 1+ (Negative) Urine Ketones Negative (Negative) Urine Blood 3+ /uL (Negative) Urine Nitrite Negative (Negative) Urine Bilirubin Negative (Negative) Urine Urobilinogen Normal mg/dL (Negative) Urine Leukocyte Esterase 3+ /uL (Negative) Urine RBC 278 /hpf (0 - 3) Urine WBC Clumps Present /hpf (None Seen) Urine Microscopic WBC 840 /HPF (0-3) Urine Squamous Epithelial Cells None seen /hpf (<5) Urine Bacteria Many /hpf (None Seen) Urine Mucus Few (None Seen) Urine Yeast (Budding) Few /hpf (None Seen) Urine Glucose Normal mg/dL (Normal) Other Laboratory Tests 08/01/24 07:00 Brief Hx & Hospital Course: 64-year-old male with a history of cerebral hemorrhage 2019 status post craniotomy and 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 Rodriguez patient also had sepsis secondary to urinary tract infection blood cultures negative urine cultures contaminated treated with the Rocephin acute urinary retention relieved by Otoole catheter urology Dr. Leroy advised outpatient cystoscopy patient has a history of BPH and bilateral hydronephrosis. Patient being discharged home on Cipro for UTI and Keppra for seizures I spoke to patient's Jr on the phone and advised that he should follow up with the Urology Neurology and his oncologist at [facility] Consults/Reason for consult Urology Dr. Munguia Neurology Dr. Rodriguez Operations or Procedures None Condition at Discharge: Fair Final Diagnosis/Problems List New onset grand mal seizure, placed on Keppra, seen by Neurology Dr. 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 Munguia appreciated, advised outpatient cystoscopy BPH urinary obstruction Bilateral hydronephrosis History of CVA Diabetes Discharge Disposition: Home Discharge Instruct/Medications Diet: Regular Activity: Light activity Follow Up/Referral: Follow up with your primary Dr Follow up with Urology Dr. Munguia in two weeks Follow up with your neurology Dr. Rodriguez in two weeks Follow up with the oncologist at [facility] regarding brain cancer treatment Medications: Cipro Keppra Transmitted to pharmacy 35 (Time taken for discharge summary 35 minutes) Discharge Statement: "Patient was advised to return to the ER or call 911 if any headaches, dizziness, shortness of breath, chest pain, abdominal pain, bleeding, fevers, or worsening of medical condition. Patient was counseled about treatment plan, medications, possible side effects, patientverbalized understanding. All questions were answered to the best of my ability. This discharge took greater then 30 minutes in planning, reviewing documentation, counseling the patient, and discussing with other team members." ASSESSMENT ASSESSMENT Hospital Course Improved marginally Assessment New onset grand mal seizure, placed on Keppra, seen by Neurology Dr. 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 Munguia appreciated, advised outpatient cystoscopy BPH urinary obstruction Bilateral hydronephrosis History of CVA Diabetes Date of Service: Aug 04, 2024 Billing Provider: VICTOR HUGO VIDALES MD Common Visit Codes: [id number] DISCH DAY >30min VICTOR HUGO VIDALES MD Aug 04, 2024 09:37
[2024-08-04] MEDS: levETIRAcetam 500 MG TAB PO SCH (09:40)
--- NOTE | 2024-08-04 11:10 | DVHPN2 ---
Progress Note - Dictate Date Seen: Aug 04, 2024 Medical Necessity Reason Pt with a Central, PICC or Fol: Yes The following are medically ne: Otoole Catheter Subjective Mr. Gambino is a right-handed male with a history of hypertension, diabetes, dyslipidemia, hemorrhagic stroke, depression, BPH. He came to the [facility] on 07/31/24, for decrease urine output s/p Otoole catheter placement, but he also has convulsion. I have seen and examined the patient, I have talked to his nurse, and other medical staff, the patient was doing fine, no seizure activity, he was awake, oriented to person, place, he knows year, with clue he say it is August. Good social skills According to reconciled medication list, the patient filled Keppra 500 mg b.i.d. from [facility] in 02/2024 Urinalysis, 08/01/2024: UTI WBC/HB/PLT/MCV, 08/01/2024: 4.7/12.2/169/89.2 BUN/CR, 08/01/2024: 22/2.17 Liver function tests, 08/01/2024: Unremarkable Reports from office Vitamin B12, 03/2020: 526 TSH, 03/2020: 2.19 CT head, 08/29/2021: 1. Right parietal approach ventriculostomy catheter terminating in the body of the right lateral ventricle. The ventricles are nondilated and imaged portion of the catheter is intact. 2. Anterior to the left frontal horn there is a 1.6 cm high attenuation lesion with associated calcification or mineralization and mild mass-effect. This does not have the typical appearance of hemorrhage and is highly suspicious for a mass lesion. Further characterization with postcontrast MRI is recommended. 3. Mild presumed small vessel ischemic disease MRI head, 10/2021: 1. There is an enhancing intraparenchymal mass adjacent to the left frontal horn measuring up to 2 cm. There is associated chronic hemorrhage peripherally. The differential includes an atypical cavernous malformation as well as a hemorrhagic neoplasm. Comparison with any prior imaging is recommended. Continued close follow-up is recommended to ensure stability. There is no adjacent edema to suggest recent hemorrhage. 2. Mild chronic small vessel ischemic disease. 3. Reidentified right parietal approach ventriculostomy catheter likely terminating in the body of the right lateral ventricle. The ventricles are unchanged in size without hydrocephalus vital signs Vital Sign Date Time Temp Pulse Resp B/P (MAP) Pulse Ox O2 Delivery O2 Flow Rate FiO2 08/04/24 08:56 98.2 77 16 94/57 (69) 93 98.2 08/04/24 08:10 Room Air* 0 21 Total Intake and Output 08/03/24 08/03/24 08/04/24 15:00 23:00 07:00 Intake Total 50 ml 650 ml 900 ml Output Total 1360 ml Balance 50 ml 650 ml -460 ml medications Current Medications Medications Dose Ordered Sig/Morenita Route Start Time Stop Time Status Last Admin Dose Admin Ondansetron HCl 4 mg Q4HP PRN IV 07/31/24 16:15 08/03/24 18:11 4 MG Docusate Sodium 100 mg BIDPRN PRN PO 07/31/24 16:15 08/03/24 05:55 100 MG Diagnostic Test (Pha) 1 strip ACHS 07/31/24 17:00 08/04/24 06:38 1 STRIP Insulin Human Regular ACHS SC 07/31/24 17:00 08/03/24 22:20 3 UNITS Dextrose 50 ml UD PRN IV 07/31/24 16:15 Tamsulosin HCl 0.4 mg QPM PO 07/31/24 18:00 08/03/24 18:11 0.4 MG Ceftriaxone Sodium 50 ml @ 100 mls/hr DAILY@09 IV 08/01/24 09:00 08/04/24 09:40 100 MLS/HR Acetaminophen/ Hydrocodone Bitart 1 tab Q6HPRN PRN PO 08/03/24 17:45 UNV Lorazepam 1 mg ONCE PRN IV 08/03/24 23:30 Levetiracetam 500 mg BID PO 08/04/24 10:00 08/04/24 09:40 500 MG Lorazepam 1 mg Q5MINP PRN IV 08/03/24 23:30 objective General: the patient is well developed and nourished. No acute distress. MENTAL STATUS: Subjective SPEECH, LANGUAGE, HIGHER CORTICAL FUNCTION: no aphasia or dysathria. CRANIAL NERVES: Pupils are equal, round and reactive. EOMs full and conjugate. Facial sensation intact in all three divisions bilaterally. Mandibular strength intact. Facial muscles symmetrical and strength intact. SENSATION: Sensation to touch and pinprick is normal. MOTOR: Normal tone in the upper and lower extremity. Normal muscle bulk. No fasciculations. No abnormal movements or posturing. Muscle strength of the major groups in the upper extremities is 5/5. Muscle strength of the major groups in the lower extremities is 5/5. REFLEXES: Deep tendon reflexes are symmetrical. No pathological reflexes. CEREBELLAR/COORDINATION: Finger to nose is normal bilaterally. GAIT/STATION: deferred. 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 Although this document has been carefully reviewed, there may still be some phonetic and typographical error Prognosis poor Plan discussed with: Other Total Time (mins): 35 TANYA BURT MD Aug 04, 2024 11:10
[2024-08-04 11:30] VITALS: TEMP 36.8
[2024-08-04 13:00] VITALS: BP 95/65; PULSE 76; RESP 17; TEMP 97.3; O2SAT 96
== END 2024-08-04 15:04 | disposition home or self-care (01) | DRG 871 ==
LOC: EDBD 10:21 → ER 10:21 → OVERFLOW 16:03 → EAST 16:10
PROVIDERS: ADMIT Family Medicine; ATTEND Family Medicine
DX: A41.9 Sepsis, unspecified organism (principal); G93.41 Metabolic encephalopathy; N13.8 Other obstructive and reflux uropathy; N13.6 Pyonephrosis; G40.409 Other generalized epilepsy and epileptic syndromes, not intractable, without status epilepticus; I10 Essential (primary) hypertension; E11.9 Type 2 diabetes mellitus without complications; F03.90 Unspecified dementia, unspecified severity, without behavioral disturbance, psychotic disturbance, mood disturbance, and anxiety; N40.1 Benign prostatic hyperplasia with lower urinary tract symptoms; K21.9 Gastro-esophageal reflux disease without esophagitis; F09 Unspecified mental disorder due to known physiological condition; N32.0 Bladder-neck obstruction; E78.5 Hyperlipidemia, unspecified; N32.89 Other specified disorders of bladder; Z98.2 Presence of cerebrospinal fluid drainage device; Z88.6 Allergy status to analgesic agent; Z86.73 Personal history of transient ischemic attack (TIA), and cerebral infarction without residual deficits; Z83.3 Family history of diabetes mellitus; Z79.899 Other long term (current) drug therapy
CPT/HCPCS: 36415; 74176; 80053; 81001; 82962; 85025; 87040; 87086; 95819; 97163; 99291; G0378; J1815; J2405